=== PATIENT | male | born 1970 | race Hispanic/Latino ===

== ENCOUNTER 2019-03-28 14:02 | Emergency (ER) | payer OTHER ==
[2019-03-28 14:39] LABS: CREATININE 1.1 mg/dL (0.5-1.5)
[2019-03-28 14:44] LABS: BILIRUBIN,TOTAL 0.3 mg/dL (0.2-1.0); TOTAL PROTEIN, SERUM 6.9 g/dL (6.0-8.3)
[2019-03-28] MEDS ORDERED: ACETAMINOPHEN EXTRA STRENGTH 500 MG TABLET ONE (15:08)
[2019-03-28 15:09] LABS: BASOPHILS % (AUTO) 0.8 % (0.0-5.0); EOSINOPHILS % (AUTO) 1.3 % (0.0-8.0); HEMATOCRIT 46.3 % (42-54); LYMPHOCYTES % (AUTO) 26.2 % (21.0-51.0); MEAN CORPUSCULAR HEMOGLOBIN 29.9 pg (27.0-33.0); MEAN CORPUSCULAR HGB CONC 35.2 g/dL (32.0-36.0); MONOCYTES % (AUTO) 6.7 % (3.0-13.0); PLATELET COUNT (AUTO) 263 K/uL (130-400); RED BLOOD CELL COUNT(AUTO) 5.45 MIL/uL (4.50-6.20); RED CELL DISTRIBUTION WIDTH 12.6 % (11.0-15.5); WHITE BLOOD COUNT (AUTO) 7.4 K/uL (4.8-10.8)
[2019-03-28 15:24] LABS: APPEARANCE,URINE Clear (CLEAR); BILIRUBIN,URINE Negative (NEGATIVE); COLOR,URINE Yellow (YELLOW); GLUCOSE, URINE (UA) Negative (NEGATIVE); KETONES,URINE Negative (NEGATIVE); LEUKOCYTE ESTERASE ,URINE Negative (NEGATIVE); NITRATE,URINE Negative (NEGATIVE); OCCULT BLOOD,URINE Negative (NEGATIVE); PH,URINE 6.5 (5.0-8.0); PROTEIN,URINE Negative (NEGATIVE); UROBILINOGEN,URINE 0.2 mg/dL (0.2-1.0)
[2019-03-28 15:32] LABS: AMPHET/METH SCREEN,URINE NEGATIVE (NEGATIVE); BARBITURATE SCREEN, URINE NEGATIVE (NEGATIVE); BENZODIAZEPINES SCREEN,URINE POSITIVE (NEGATIVE); CANNABINOID SCREEN,URINE NEGATIVE (NEGATIVE); COCAINE SCREEN,URINE POSITIVE (NEGATIVE); OPIATE SCREEN,URINE NEGATIVE (NEGATIVE); PHENCYCLIDINE SCREEN,URINE NEGATIVE (NEGATIVE)
[2019-03-28] MEDS ORDERED: IBUPROFEN 600 MG TABLET ONE (15:49)
== END 2019-03-28 15:57 | disposition home or self-care (01) ==
LOC: EDH 14:02
DX: S00.83XA Contusion of other part of head, initial encounter (principal); G40.909 Epilepsy, unspecified, not intractable, without status epilepticus; F14.10 Cocaine abuse, uncomplicated; I10 Essential (primary) hypertension; F41.9 Anxiety disorder, unspecified; I25.2 Old myocardial infarction; Z72.0 Tobacco use; X58.XXXA Exposure to other specified factors, initial encounter; Y93.89 Activity, other specified; Y92.89 Other specified places as the place of occurrence of the external cause; Y99.8 Other external cause status
CPT/HCPCS: 36415; 80053; 80305; 81003; 83735; 85025; 93005

== ENCOUNTER 2020-08-15 19:15 | Inpatient (IN) | payer OTHER ==
[2020-08-15] MEDS ORDERED: PANTOPRAZOLE 40 MG/VIAL ONE (19:40)
[2020-08-15] MEDS ORDERED: METOCLOPRAMIDE 10 MG/2 ML VIAL ONE (19:40)
[2020-08-15] MEDS ORDERED: ONDANSETRON HCL 4 MG/2 ML VIAL ONE (19:40)
[2020-08-15] MEDS ORDERED: FAMOTIDINE/PF 20 MG/2 ML VIAL IV ONE (19:41)
[2020-08-15 19:49] LABS: BASOPHILS % (AUTO) 0.9 % (0.0-5.0); EOSINOPHILS % (AUTO) 1.9 % (0.0-8.0); HEMATOCRIT 41.4 % (42-54); LYMPHOCYTES % (AUTO) 20.6 % (21.0-51.0); MEAN CORPUSCULAR HEMOGLOBIN 28.8 pg (27.0-33.0); MEAN CORPUSCULAR HGB CONC 35.7 g/dL (32.0-36.0); MEAN CORPUSCULAR VOLUME 80.7 fL (79-99); MONOCYTES % (AUTO) 12.8 % (3.0-13.0); NEUTROPHILS % (AUTO) 63.5 % (40.0-77.0); PLATELET COUNT (AUTO) 260 K/uL (130-400); RED BLOOD CELL COUNT(AUTO) 5.13 MIL/uL (4.50-6.20); WHITE BLOOD COUNT (AUTO) 5.7 K/uL (4.8-10.8)
[2020-08-15 19:58] LABS: CREATININE 1.5 mg/dL (0.5-1.5); POTASSIUM 3.8 mmol/L (3.5-5.1)
[2020-08-15 20:02] LABS: INR 1.02 (0.85-1.15); PROTHROMBIN TIME 11.1 SEC (9.6-11.6)
[2020-08-15 20:03] LABS: PARTIAL THROMBOPLASTIN TIME 36.2 SEC (26.3-35.5)
[2020-08-15 20:08] LABS: ALBUMIN 4.2 g/dL (3.5-5.0); BILIRUBIN,TOTAL 0.5 mg/dL (0.2-1.0); TOTAL PROTEIN, SERUM 7.7 g/dL (6.0-8.3)
[2020-08-15] MEDS ORDERED: DiphenhydrAMINE HCL 50 MG/ML VIAL ONE (20:13)
[2020-08-15] MEDS ORDERED: MORPHINE SULFATE 4 MG/1ML SYG ONE (20:34)
[2020-08-15] MEDS ORDERED: IOHEXOL-350 75 ML VIAL IV ONE (20:41)
[2020-08-15] MEDS ORDERED: HYDROMORPHONE 1 MG/1 ML AMP ONE ×2 (21:17→22:38)
[2020-08-15 22:49] LABS: APPEARANCE,URINE Clear (CLEAR); BILIRUBIN,URINE Negative (NEGATIVE); COLOR,URINE Yellow (YELLOW); GLUCOSE, URINE (UA) Negative (NEGATIVE); KETONES,URINE Negative (NEGATIVE); LEUKOCYTE ESTERASE ,URINE Negative (NEGATIVE); NITRATE,URINE Negative (NEGATIVE); OCCULT BLOOD,URINE Negative (NEGATIVE); PH,URINE 7.5 (5.0-8.0); PROTEIN,URINE Negative (NEGATIVE); UROBILINOGEN,URINE 0.2 mg/dL (0.2-1.0)
[2020-08-15] MEDS ORDERED: LUBIPROSTONE 24 MCG CAP PO SCH (23:00)
[2020-08-15] MEDS ORDERED: BISACODYL 10 MG SUPP.RECT RC ONE (23:00)
[2020-08-15 23:22] LABS: AMPHET/METH SCREEN,URINE NEGATIVE (NEGATIVE); BARBITURATE SCREEN, URINE NEGATIVE (NEGATIVE); BENZODIAZEPINES SCREEN,URINE NEGATIVE (NEGATIVE); CANNABINOID SCREEN,URINE NEGATIVE (NEGATIVE); COCAINE SCREEN,URINE POSITIVE (NEGATIVE); OPIATE SCREEN,URINE POSITIVE (NEGATIVE); PHENCYCLIDINE SCREEN,URINE NEGATIVE (NEGATIVE)
[2020-08-15 23:22] LABS: HEMOGLOBIN A1C 6.6 % (4.0-6.0)
[2020-08-15] MEDS ORDERED: MORPHINE SULFATE 4 MG/1ML SYG IV PRN (23:30)
[2020-08-15] MEDS ORDERED: SODIUM CHLORIDE 0.9% 1000ML 1,000 ML IV SCH (23:30)
[2020-08-15] MEDS ORDERED: MORPHINE SULFATE 2 MG/ML 1ML SYG IV PRN (23:30)
[2020-08-15] MEDS ORDERED: TEMAZEPAM 15 MG CAPSULE PO ONE (23:30)
[2020-08-15] MEDS ORDERED: ACETAMINOPHEN 325 MG TAB PO PRN ×2 (23:30)
[2020-08-15] MEDS ORDERED: ONDANSETRON HCL 4 MG/2 ML VIAL IV PRN (23:30)
[2020-08-16 00:09] LABS: CREATINE KINASE, TOTAL 82 U/L (21-232); MYOGLOBIN 35 ng/mL (10-92); PHOSPHORUS 3.5 mg/dL (2.5-4.9); TROPONIN I < 0.04 ng/mL (0.00-0.06)
[2020-08-16] MEDS ORDERED: TEMAZEPAM 15 MG CAPSULE ONE (00:30)
[2020-08-16] MEDS ORDERED: SODIUM CHLORIDE 0.9% 1000ML 1,000 ML IV ONE (00:31)
[2020-08-16] MEDS ORDERED: DILTIAZEM HCL 60 MG TABLET ONE (00:42)
[2020-08-16] MEDS ORDERED: DILTIAZEM HCL 60 MG TABLET PO SCH (06:00)
[2020-08-16 06:13] LABS: BASOPHILS % (AUTO) 0.6 % (0.0-5.0); EOSINOPHILS % (AUTO) 2.1 % (0.0-8.0); HEMATOCRIT 40.4 % (42-54); MEAN CORPUSCULAR HEMOGLOBIN 28.8 pg (27.0-33.0); MEAN CORPUSCULAR HGB CONC 35.4 g/dL (32.0-36.0); MEAN CORPUSCULAR VOLUME 81.5 fL (79-99); MONOCYTES % (AUTO) 14.5 % (3.0-13.0); NEUTROPHILS % (AUTO) 57.2 % (40.0-77.0); PLATELET COUNT (AUTO) 244 K/uL (130-400); RED BLOOD CELL COUNT(AUTO) 4.96 MIL/uL (4.50-6.20); RED CELL DISTRIBUTION WIDTH 12.3 % (11.0-15.5); WHITE BLOOD COUNT (AUTO) 4.8 K/uL (4.8-10.8)
[2020-08-16] MEDS ORDERED: MORPHINE SULFATE 2 MG/ML 1ML SYG ONE (06:20)
[2020-08-16 06:37] LABS: ALANINE AMINOTRANSFERASE 48 U/L (12-78); ALBUMIN 4.2 g/dL (3.5-5.0); ASPARTATE AMINOTRANSFERASE 21 U/L (10-37); BILIRUBIN,TOTAL 0.6 mg/dL (0.2-1.0); CARBON DIOXIDE 24 mmol/L (21-32); CHLORIDE 99 mmol/L (101-111); CHOLESTEROL 141 mg/dL (<200); CREATINE KINASE, TOTAL 96 U/L (21-232); CREATININE 1.1 mg/dL (0.5-1.5); GLOMERULAR FILTR. RATE CALC 76 mL/min (>60); GLUCOSE,RANDOM 128 mg/dL (70-105); HDL CHOLESTEROL 36 mg/dL (29-71); LDL DIRECT 78 mg/dL (0-99); LIPASE 1101 U/L (114-286); MYOGLOBIN 36 ng/mL (10-92); POTASSIUM 3.8 mmol/L (3.5-5.1); SODIUM SERUM 134 mmol/L (136-145); TOTAL PROTEIN, SERUM 7.7 g/dL (6.0-8.3); TRIGLYCERIDES 167 mg/dL (30-200); TROPONIN I < 0.04 ng/mL (0.00-0.06); UREA NITROGEN, BLOOD 15 mg/dL (7-18)
[2020-08-16] MEDS ORDERED: FAMOTIDINE/PF 20 MG/2 ML VIAL IV ONE (08:08)
[2020-08-16] MEDS ORDERED: ENOXAPARIN SODIUM 40 MG/0.4 ML SYRINGE SQ ONE (08:08)
[2020-08-16] MEDS ORDERED: PSYLLIUM SEED 1 EACH PACKET PO SCH (09:00)
[2020-08-16] MEDS ORDERED: FAMOTIDINE/PF 20 MG/2 ML VIAL IV SCH (09:00)
[2020-08-16] MEDS ORDERED: ENOXAPARIN SODIUM 40 MG/0.4 ML SYRINGE SQ SCH (09:00)
== END 2020-08-16 08:30 | disposition left against medical advice (07) | DRG 917 ==
LOC: EDH 19:15 → EDHIP 19:16 → UNDOADMIN 23:22
PROVIDERS: ADMIT Internal Medicine; ATTEND Internal Medicine
DX: T40.5X1A Poisoning by cocaine, accidental (unintentional), initial encounter (principal); K55.059 Acute (reversible) ischemia of intestine, part and extent unspecified; K85.90 Acute pancreatitis without necrosis or infection, unspecified; E87.1 Hypo-osmolality and hyponatremia; G40.909 Epilepsy, unspecified, not intractable, without status epilepticus; M10.9 Gout, unspecified; I10 Essential (primary) hypertension; F32.9 Major depressive disorder, single episode, unspecified; K76.0 Fatty (change of) liver, not elsewhere classified; R16.1 Splenomegaly, not elsewhere classified; R73.9 Hyperglycemia, unspecified; F39 Unspecified mood [affective] disorder; F14.10 Cocaine abuse, uncomplicated; F12.10 Cannabis abuse, uncomplicated; K57.90 Diverticulosis of intestine, part unspecified, without perforation or abscess without bleeding; K59.00 Constipation, unspecified; Z53.29 Procedure and treatment not carried out because of patient's decision for other reasons; Z79.899 Other long term (current) drug therapy; Z56.0 Unemployment, unspecified; Z91.19 Patient's noncompliance with other medical treatment and regimen; I25.2 Old myocardial infarction; Z91.14 Patient's other noncompliance with medication regimen; Y92.89 Other specified places as the place of occurrence of the external cause
CPT/HCPCS: 36415; 74177; 76705; 80053; 80061; 80305; 81003; 82550; 83036; 83605; 83690; 83735; 83874; 84100; 84145; 84484; 85025; 85610; 85730; 86140; 93005; C9113; G0378; J1170; J1200; J1650; J2270; J2405; J2765; J3490; J7030; Q9967

== ENCOUNTER 2020-08-17 05:41 | Inpatient (IN) | payer OTHER ==
[2020-08-17] MEDS ORDERED: LABETALOL HCL 5 MG/ML 20ML VIAL IV ONE (06:21)
[2020-08-17] MEDS ORDERED: MAG HYDROX/AL HYDROX/SIMETH ES 30 ML SUSP UDCUP ONE (06:33)
[2020-08-17] MEDS ORDERED: LIDOCAINE HCL 2% VISCOUS 15 ML UDCUP ONE (06:33)
[2020-08-17 06:34] LABS: EOSINOPHILS % (AUTO) 3.3 % (0.0-8.0); HEMATOCRIT 44.4 % (42-54); MEAN CORPUSCULAR HEMOGLOBIN 28.6 pg (27.0-33.0); MEAN CORPUSCULAR HGB CONC 35.1 g/dL (32.0-36.0); MEAN CORPUSCULAR VOLUME 81.5 fL (79-99); MONOCYTES % (AUTO) 13.5 % (3.0-13.0); NEUTROPHILS % (AUTO) 63.5 % (40.0-77.0); PLATELET COUNT (AUTO) 303 K/uL (130-400); RED BLOOD CELL COUNT(AUTO) 5.45 MIL/uL (4.50-6.20); RED CELL DISTRIBUTION WIDTH 12.5 % (11.0-15.5); WHITE BLOOD COUNT (AUTO) 6.1 K/uL (4.8-10.8)
[2020-08-17 06:43] LABS: ALBUMIN 4.2 g/dL (3.5-5.0); BILIRUBIN,TOTAL 0.7 mg/dL (0.2-1.0); CREATININE 1.1 mg/dL (0.5-1.5); POTASSIUM 4.3 mmol/L (3.5-5.1); TOTAL PROTEIN, SERUM 8.1 g/dL (6.0-8.3)
[2020-08-17] MEDS ORDERED: MORPHINE SULFATE 2 MG/ML 1ML SYG IVP PRN (08:15)
[2020-08-17] MEDS ORDERED: LACTATED RINGERS 1000ML 1,000 ML IV SCH (08:15)
[2020-08-17 08:38] LABS: AMPHET/METH SCREEN,URINE NEGATIVE (NEGATIVE); BARBITURATE SCREEN, URINE NEGATIVE (NEGATIVE); BENZODIAZEPINES SCREEN,URINE POSITIVE (NEGATIVE); CANNABINOID SCREEN,URINE NEGATIVE (NEGATIVE); COCAINE SCREEN,URINE POSITIVE (NEGATIVE); OPIATE SCREEN,URINE NEGATIVE (NEGATIVE); PHENCYCLIDINE SCREEN,URINE NEGATIVE (NEGATIVE)
[2020-08-17] MEDS ORDERED: SODIUM CHLORIDE 0.9% 1000ML 1,000 ML IV ONE (08:55)
[2020-08-17] MEDS ORDERED: MORPHINE SULFATE 2 MG/ML 1ML SYG ONE (08:56)
[2020-08-17] MEDS ORDERED: LACTATED RINGERS 1000ML 1,000 ML IV ONE (08:56)
== END 2020-08-17 12:22 | disposition home or self-care (01) | DRG 439 ==
LOC: EDH 05:41 → EDHIP 05:42
PROVIDERS: ADMIT Internal Medicine; ATTEND Internal Medicine
DX: K85.90 Acute pancreatitis without necrosis or infection, unspecified (principal); E87.1 Hypo-osmolality and hyponatremia; F14.10 Cocaine abuse, uncomplicated; Z91.19 Patient's noncompliance with other medical treatment and regimen; R73.9 Hyperglycemia, unspecified; G40.909 Epilepsy, unspecified, not intractable, without status epilepticus; F39 Unspecified mood [affective] disorder; I10 Essential (primary) hypertension; F31.9 Bipolar disorder, unspecified
CPT/HCPCS: 36415; 76705; 80053; 80305; 83605; 83690; 84484; 85025; 93005; G0378; J3490; J7030; J7120

== ENCOUNTER 2022-09-12 12:24 | Emergency (ER) | payer OTHER ==
[~2022-09-12] VITALS: Ht 175.3 cm; Wt 104.3 kg
[2022-09-12 13:18] LABS: BASOPHILS % (AUTO) 0.7 % (0.0-5.0); EOSINOPHILS % (AUTO) 2.7 % (0.0-8.0); HEMATOCRIT 49.4 % (42-54); LYMPHOCYTES % (AUTO) 30.9 % (21.0-51.0); MEAN CORPUSCULAR HEMOGLOBIN 29.2 pg (27.0-33.0); MEAN CORPUSCULAR HGB CONC 34.8 g/dL (32.0-36.0); MEAN CORPUSCULAR VOLUME 83.9 fL (79-99); MONOCYTES % (AUTO) 5.9 % (3.0-13.0); NEUTROPHILS % (AUTO) 59.3 % (40.0-77.0); PLATELET COUNT (AUTO) 207 K/uL (130-400); RED BLOOD CELL COUNT(AUTO) 5.89 MIL/uL (4.50-6.20); RED CELL DISTRIBUTION WIDTH 13.1 % (11.0-15.5); WHITE BLOOD COUNT (AUTO) 5.5 K/uL (4.8-10.8)
[2022-09-12 13:29] LABS: CREATININE 1.2 mg/dL (0.5-1.5); POTASSIUM 3.9 mmol/L (3.5-5.1)
[2022-09-12 13:35] LABS: ALBUMIN 4.3 g/dL (3.5-5.0); TOTAL PROTEIN, SERUM 7.4 g/dL (6.0-8.3)
[2022-09-12 13:42] LABS: AMPHET/METH SCREEN,URINE NEGATIVE (NEGATIVE); BARBITURATE SCREEN, URINE NEGATIVE (NEGATIVE); BENZODIAZEPINES SCREEN,URINE POSITIVE (NEGATIVE); CANNABINOID SCREEN,URINE NEGATIVE (NEGATIVE); COCAINE SCREEN,URINE NEGATIVE (NEGATIVE); OPIATE SCREEN,URINE NEGATIVE (NEGATIVE); PHENCYCLIDINE SCREEN,URINE NEGATIVE (NEGATIVE)
[2022-09-12 13:46] LABS: APPEARANCE,URINE CLEAR (CLEAR); BILIRUBIN,URINE NEGATIVE (NEGATIVE); COLOR,URINE LIGHT-YELLOW (YELLOW); GLUCOSE, URINE (UA) >=1000 mg/dL (NEGATIVE); KETONES,URINE 5 mg/dL (NEGATIVE); LEUKOCYTE ESTERASE ,URINE NEGATIVE Leu/uL (NEGATIVE); NITRATE,URINE NEGATIVE (NEGATIVE); OCCULT BLOOD,URINE NEGATIVE (NEGATIVE); PROTEIN,URINE NEGATIVE (NEGATIVE); RBC,URINE 0-1 /HPF (0-1); UROBILINOGEN,URINE 0.2 mg/dL (0.2-1.0); WBC,URINE 0-1 /HPF (0-1)
[2022-09-12 14:32] VITALS: BP 106/72
== END 2022-09-12 14:59 | disposition home or self-care (01) ==
LOC: EDH 12:24
DX: H53.8 Other visual disturbances (principal); I10 Essential (primary) hypertension; E11.9 Type 2 diabetes mellitus without complications; H53.2 Diplopia; F41.9 Anxiety disorder, unspecified
CPT/HCPCS: 36415; 80053; 80305; 81001; 84484; 85025; 93005

== ENCOUNTER 2023-01-08 04:04 | Emergency (ER) | payer OTHER ==
[~2023-01-08] VITALS: Ht 175.3 cm; Wt 109.8 kg
[2023-01-08 04:22] LABS: BASOPHILS # (AUTO) 0.05 K/uL (0.00-0.20); BASOPHILS % (AUTO) 0.6 % (0.0-5.0); EOSINOPHILS # (AUTO) 0.38 K/uL (0.00-0.70); EOSINOPHILS % (AUTO) 4.3 % (0.0-8.0); HEMATOCRIT 45.4 % (42-54); IMMATURE GRANULOCYTE ABSOLUTE 0.04 K/uL (0-1); LYMPHOCYTES # (AUTO) 1.6 K/uL (1.0-4.8); LYMPHOCYTES % (AUTO) 17.8 % (21.0-51.0); MEAN CORPUSCULAR HEMOGLOBIN 28.9 pg (27.0-33.0); MEAN CORPUSCULAR HGB CONC 35.2 g/dL (32.0-36.0); MEAN CORPUSCULAR VOLUME 82.1 fL (79-99); MONOCYTES # (AUTO) 0.8 K/uL (0.1-1.0); MONOCYTES % (AUTO) 8.5 % (3.0-13.0); NEUTROPHILS # (AUTO) 6.1 K/uL (1.8-7.7); NEUTROPHILS % (AUTO) 68.3 % (40.0-77.0); PLATELET COUNT (AUTO) 243 K/uL (130-400); RED BLOOD CELL COUNT(AUTO) 5.53 MIL/uL (4.50-6.20); RED CELL DISTRIBUTION WIDTH 12.6 % (11.0-15.5); WHITE BLOOD COUNT (AUTO) 8.9 K/uL (4.8-10.8)
[2023-01-08 04:31] LABS: CREATININE 1.1 mg/dL (0.5-1.5); POTASSIUM 4.1 mmol/L (3.5-5.1)
[2023-01-08 04:39] LABS: ALBUMIN 3.7 g/dL (3.5-5.0); BILIRUBIN,TOTAL 0.3 mg/dL (0.2-1.0); TOTAL PROTEIN, SERUM 7.5 g/dL (6.0-8.3)
[2023-01-08] MEDS ORDERED: NITROGLYCERIN 0.4 MG SL TAB SL PRN (05:00)
[2023-01-08] MEDS ORDERED: MORPHINE 4 MG SYG IVP ONE (06:30)
[2023-01-08] MEDS ORDERED: IOHEXOL 350 MG/ML 100ML INFUS..BTL IV ONE (06:37)
[2023-01-08 08:01] LABS: CRP QUANTITATIVE 41.4 mg/L (0.00-9.0)
[2023-01-08] MEDS ORDERED: AZITHROMYCIN 250 MG TABLET PO ONE (08:30)
[2023-01-08] MEDS ORDERED: CEFTRIAXONE 1G VIAL IVPB ONE (08:30)
[2023-01-08] MEDS ORDERED: KETOROLAC 30MG VIAL (30MG/ML) IVP ONE (08:30)
[2023-01-08] MEDS ORDERED: 0.9%NACL 1000ML 1,000 ML IV SCH (08:30)
[2023-01-08 09:07] LABS: MAGNESIUM 1.8 mg/dL (1.80-2.40)
[2023-01-08 09:33] LABS: ABG BASE EXCESS -2.9 mmol/L (-2.0-3.0); ABG HCO3 21.6 mmol/L (21.0-28.0); ABG OXYGEN SATURATION 95.7 % (95.0-99.0); ABG PCO2 37 mmHg (35-48); ABG PH 7.384 (7.35-7.450); PO2, ARTERIAL BG 79.8 mmHg (83.0-108.0); VENT MODE, BG RA (ROOM AIR)
[2023-01-08] MEDS ORDERED: AMOX-426 PO (09:57)
[2023-01-08] MEDS ORDERED: KETO10 PO (09:57)
[2023-01-08 10:21] VITALS: BP 138/81; PULSE 91; RESP 18; O2SAT 96
== END 2023-01-08 10:22 | disposition home or self-care (01) ==
LOC: EDH 04:04
DX: R07.89 Other chest pain (principal); I10 Essential (primary) hypertension; F41.9 Anxiety disorder, unspecified; F32.A Depression, unspecified; R56.9 Unspecified convulsions
CPT/HCPCS: 99285; 96365; 71275; 71045; 96375; 82550; 83735; 84484 ×2; 80053; 82803; 83690; 85025; 85378; 87040 ×2; 83605; 86140; 36415; 93005 ×3; 36600; J0696; J2270; J1885; Q9967

== ENCOUNTER 2023-05-14 06:17 | Inpatient (IN) | payer OTHER ==
[~2023-05-14] VITALS: Ht 175.3 cm; Wt 108.4 kg
[~2023-05-14 06:17] MED LIST: AMOX-426 PO; KETO10 PO
[2023-05-14] MEDS ORDERED: SOLU-MEDROL 125MG VIAL ONE (06:25)
[2023-05-14] MEDS ORDERED: NITROGLYCERIN 0.4 MG SL TAB SL ONE (06:25)
[2023-05-14] MEDS ORDERED: IPRATROPIUM/ALBUTEROL SULFATE 3 ML SOLUTION IH ONE ×3 (06:28→07:00)
[2023-05-14] MEDS ORDERED: NITROGLYCERIN 0.4 MG SL TAB SL PRN (06:30)
[2023-05-14] MEDS ORDERED: SOLU-MEDROL 125MG VIAL IVP ONE (06:30)
[2023-05-14 06:35] VITALS: PULSE 125; RESP 21
[2023-05-14] MEDS ORDERED: NITROGLYCERIN 50MG/D5W 250ML 1 BOT ONE (06:35)
[2023-05-14] MEDS ORDERED: ACETAMINOPHEN 500 MG TABLET ONE (06:39)
[2023-05-14 06:43] LABS: BASOPHILS # (AUTO) 0.04 K/uL (0.00-0.20); BASOPHILS % (AUTO) 0.6 % (0.0-5.0); EOSINOPHILS # (AUTO) 0.04 K/uL (0.00-0.70); EOSINOPHILS % (AUTO) 0.6 % (0.0-8.0); HEMATOCRIT 47.6 % (42-54); IMMATURE GRANULOCYTE ABSOLUTE 0.05 K/uL (0-1); LYMPHOCYTES # (AUTO) 0.8 K/uL (1.0-4.8); LYMPHOCYTES % (AUTO) 11.9 % (21.0-51.0); MEAN CORPUSCULAR HEMOGLOBIN 28.5 pg (27.0-33.0); MEAN CORPUSCULAR HGB CONC 34.9 g/dL (32.0-36.0); MEAN CORPUSCULAR VOLUME 81.8 fL (79-99); MONOCYTES # (AUTO) 0.6 K/uL (0.1-1.0); MONOCYTES % (AUTO) 8.6 % (3.0-13.0); NEUTROPHILS # (AUTO) 5.3 K/uL (1.8-7.7); NEUTROPHILS % (AUTO) 77.6 % (40.0-77.0); PLATELET COUNT (AUTO) 229 K/uL (130-400); RED BLOOD CELL COUNT(AUTO) 5.82 MIL/uL (4.50-6.20); RED CELL DISTRIBUTION WIDTH 12.7 % (11.0-15.5); WHITE BLOOD COUNT (AUTO) 6.9 K/uL (4.8-10.8)
[2023-05-14 06:50] VITALS: PULSE 118; RESP 21
[2023-05-14 06:51] LABS: ALBUMIN 3.9 g/dL (3.5-5.0); BILIRUBIN,TOTAL 0.6 mg/dL (0.2-1.0); MAGNESIUM 1.6 mg/dL (1.80-2.40); POTASSIUM 3.8 mmol/L (3.5-5.1); TOTAL PROTEIN, SERUM 7.8 g/dL (6.0-8.3)
[2023-05-14 06:57] LABS: SARS-CoV-2, RNA, NAAT NEGATIVE SARS CoV-2 (NEGATIVE)
[2023-05-14] MEDS ORDERED: HEPARIN 25,000 UNITS/250ML D5W 250 ML IV PRN (07:00)
[2023-05-14] MEDS ORDERED: NITROGLYCERIN 50MG/D5W 250ML 250 BOT IV SCH (07:00)
[2023-05-14] MEDS ORDERED: ACETAMINOPHEN 500 MG TABLET PO ONE (07:00)
[2023-05-14] MEDS ORDERED: NITROGLYCERIN 50MG/D5W 250ML 1 BOT IV PRN (07:00)
[2023-05-14] MEDS ORDERED: KETOROLAC 30MG VIAL (30MG/ML) IV ONE (07:00)
[2023-05-14] MEDS ORDERED: ONDANSETRON 4MG INJ IVP ONE ×2 (07:00)
[2023-05-14] MEDS ORDERED: FUROSEMIDE 40MG VIAL IV ONE (07:00)
[2023-05-14 07:03] LABS: INFLUENZA TYPE A Negative For Type A (NEGATIVE); INFLUENZA TYPE B Negative For Type B (NEGATIVE)
[2023-05-14 07:05] VITALS: PULSE 115; RESP 19; O2SAT 98
[2023-05-14] MEDS ORDERED: ASPIRIN 81MG CHEW TAB ONE (07:09)
[2023-05-14] MEDS ORDERED: LORAZEPAM 2 MG/ML 1 ML VIAL ONE (07:20)
[2023-05-14 07:21] LABS: CHOLESTEROL 155 mg/dL (<200); HDL CHOLESTEROL 31 mg/dL (29-71); LDL DIRECT 84 mg/dL (0-99); TRIGLYCERIDES 264 mg/dL (30-200)
[2023-05-14 07:27] LABS: B-TYPE NATRIURETIC PEPTIDE 7 pg/mL (0-100)
[2023-05-14 07:28] LABS: INR < 0.93 (0.85-1.15); PROTHROMBIN TIME 10.3 SEC (9.6-11.6)
[2023-05-14] MEDS ORDERED: LORAZEPAM 2 MG/ML 1 ML VIAL IVP ONE (07:30)
[2023-05-14] MEDS ORDERED: ASPIRIN 81MG CHEW TAB PO ONE (07:30)
[2023-05-14] MEDS ORDERED: QUET300T19 PO (07:52)
[2023-05-14] MEDS ORDERED: DIVA-76 PO (07:52)
[2023-05-14] MEDS ORDERED: ALPR2TAB7 PO (07:53)
[2023-05-14] MEDS ORDERED: ASPIRIN 325MG TAB PO ONE (08:00)
[2023-05-14] MEDS ORDERED: ACETAMINOPHEN 650 MG SUPPOSITORY RC PRN (08:00)
[2023-05-14] MEDS ORDERED: ACETAMINOPHEN 325 MG TAB PO PRN (08:00)
[2023-05-14] MEDS ORDERED: LACTULOSE 20 GM/30 ML UDCUP PO PRN (08:00)
[2023-05-14] MEDS ORDERED: CLONIDINE HCL 0.1 MG TABLET PO PRN (08:00)
[2023-05-14] MEDS ORDERED: HYDRALAZINE 20MG/ML VIAL IV PRN (08:00)
[2023-05-14] MEDS ORDERED: ONDANSETRON 4MG INJ IVP PRN (08:00)
[2023-05-14] MEDS ORDERED: MAGNESIUM 2GM PREMIX 50ML 50 ML IV SCH (08:00)
[2023-05-14] MEDS ORDERED: LABETALOL 20MG SYG IV PRN (08:00)
[2023-05-14] MEDS ORDERED: TEMAZEPAM 15 MG CAPSULE PO PRN (08:00)
[2023-05-14] MEDS ORDERED: LORAZEPAM 1 MG TABLET PO PRN (08:00)
[2023-05-14] MEDS ORDERED: FUROSEMIDE 40MG VIAL IV SCH (08:00)
[2023-05-14] MEDS ORDERED: IOHEXOL 350 MG/ML 100ML INFUS..BTL IV ONE (08:21)
[2023-05-14 08:33] LABS: AMPHET/METH SCREEN,URINE NEGATIVE (NEGATIVE); BARBITURATE SCREEN, URINE NEGATIVE (NEGATIVE); BENZODIAZEPINES SCREEN,URINE POSITIVE (NEGATIVE); CANNABINOID SCREEN,URINE NEGATIVE (NEGATIVE); COCAINE SCREEN,URINE NEGATIVE (NEGATIVE); OPIATE SCREEN,URINE NEGATIVE (NEGATIVE); PHENCYCLIDINE SCREEN,URINE NEGATIVE (NEGATIVE)
[2023-05-14] MEDS ORDERED: CEFTRIAXONE 1G VIAL IVPB SCH (09:00)
[2023-05-14] MEDS ORDERED: AZITHROMYCIN 500MG+NS 250ML IV SCH (09:00)
[2023-05-14] MEDS ORDERED: ENOXAPARIN SODIUM 40 MG/0.4 ML SYRINGE SQ SCH (09:00)
[2023-05-14] MEDS ORDERED: FOLIC ACID 1 MG TABLET PO SCH (09:00)
[2023-05-14] MEDS ORDERED: PANTOPRAZOLE 40 MG TAB DR PO SCH (09:00)
[2023-05-14] MEDS ORDERED: MULTIVITS,STRESS FORMULA/ZINC 1 TABLET PO SCH (09:00)
[2023-05-14] MEDS ORDERED: THIAMINE HCL 100 MG TABLET PO SCH (09:00)
[2023-05-14] MEDS ORDERED: ASCORBIC ACID 500 MG TAB PO SCH (09:00)
[2023-05-14] MEDS ORDERED: DIVALPROEX SODIUM 250 MG TABLET.DR PO SCH (09:00)
[2023-05-14] MEDS ORDERED: LISINOPRIL 10 MG TABLET PO SCH (09:00)
[2023-05-14 09:53] VITALS: PULSE 96; RESP 20; O2SAT 96
[2023-05-14 10:29] VITALS: BP 113/92; PULSE 106; RESP 20; O2SAT 96
[2023-05-14] MEDS ORDERED: INSULIN HUMULIN R 100 UNIT/ML 3ML SQ SCH (11:30)
[2023-05-14] MEDS ORDERED: NON-FORMULARY MEDICATION 1 EACH (Alprazolam 2 MG) PO SCH (21:00)
[2023-05-14] MEDS ORDERED: QUETIAPINE FUMARATE 300 MG PO SCH (21:00)
[2023-05-15] MEDS ORDERED: ASPIRIN 81MG CHEW TAB PO SCH (09:00)
== END 2023-05-14 10:27 | disposition left against medical advice (07) | DRG 304 ==
LOC: EDH 06:17 → OBSVTOIN 06:18 → UNDOADMOB 06:18 → EDHIP 06:18 → UNDOADMOB 07:43 → EDHIP 07:43 → INTOOBSV 07:43 → OBSVTOIN 07:43 → UNDODISIN 10:27 → EDH 10:33 → EDHIP 10:33
PROVIDERS: ADMIT Internal Medicine Critical Care Medicine; ATTEND Internal Medicine Critical Care Medicine
DX: I16.1 Hypertensive emergency (principal); J81.0 Acute pulmonary edema; Z20.822 Contact with and (suspected) exposure to COVID-19; E11.9 Type 2 diabetes mellitus without complications; E66.9 Obesity, unspecified; F41.9 Anxiety disorder, unspecified; I10 Essential (primary) hypertension; Z53.29 Procedure and treatment not carried out because of patient's decision for other reasons; F19.10 Other psychoactive substance abuse, uncomplicated; R91.8 Other nonspecific abnormal finding of lung field; I25.2 Old myocardial infarction; Z82.49 Family history of ischemic heart disease and other diseases of the circulatory system; Z83.3 Family history of diabetes mellitus; Z68.35 Body mass index [BMI] 35.0-35.9, adult
CPT/HCPCS: 36415; 71045; 71270; 80053; 80061; 80305; 83605; 83735; 83880; 84484; 85025; 85378; 85610; 85730; 87040; 87635; 87804; 87880; 93005; 94640; 94660; C9803; G0378; J1644; J1885; J1940; J2060; J2405; J2930; J3475; J3490; Q9967

== ENCOUNTER 2023-05-17 15:32 | Inpatient (IN) | payer OTHER ==
[~2023-05-17] VITALS: Ht 175.3 cm; Wt 79.4 kg
[~2023-05-17 15:32] MED LIST changes: +ALPR2TAB7 PO; +DIVA-76 PO; +ETOMIDATE 20MG VIAL IVP ONE; +QUET300T19 PO; +ROCURONIUM BROMIDE 10MG/1ML 5ML VL IV ONE
[2023-05-17 15:46] LABS: BASOPHILS # (AUTO) 0.02 K/uL (0.00-0.20); BASOPHILS % (AUTO) 0.3 % (0.0-5.0); EOSINOPHILS # (AUTO) 0.06 K/uL (0.00-0.70); EOSINOPHILS % (AUTO) 0.8 % (0.0-8.0); HEMATOCRIT 44.3 % (42-54); IMMATURE GRANULOCYTE ABSOLUTE 0.05 K/uL (0-1); LYMPHOCYTES # (AUTO) 0.9 K/uL (1.0-4.8); LYMPHOCYTES % (AUTO) 12.2 % (21.0-51.0); MEAN CORPUSCULAR HEMOGLOBIN 28.5 pg (27.0-33.0); MEAN CORPUSCULAR HGB CONC 34.5 g/dL (32.0-36.0); MEAN CORPUSCULAR VOLUME 82.6 fL (79-99); MONOCYTES # (AUTO) 0.6 K/uL (0.1-1.0); MONOCYTES % (AUTO) 7.6 % (3.0-13.0); NEUTROPHILS % (AUTO) 78.4 % (40.0-77.0); PLATELET COUNT (AUTO) 239 K/uL (130-400); RED BLOOD CELL COUNT(AUTO) 5.36 MIL/uL (4.50-6.20); RED CELL DISTRIBUTION WIDTH 12.7 % (11.0-15.5); WHITE BLOOD COUNT (AUTO) 7.6 K/uL (4.8-10.8)
[2023-05-17 15:50] VITALS: PULSE 129; RESP 39; O2SAT 96
[2023-05-17] MEDS ORDERED: IPRATROPIUM/ALBUTEROL SULFATE 3 ML SOLUTION IH ONE (16:00)
[2023-05-17 16:01] LABS: ABG BASE EXCESS 1.6 mmol/L (-2.0-3.0); ABG HCO3 26.5 mmol/L (21.0-28.0); ABG OXYGEN SATURATION 98.4 % (95.0-99.0); ABG PCO2 43 mmHg (35-48); ABG PH 7.411 (7.35-7.450); DEVICE COMMENT RR RN; HHb 1.6; VENT MODE, BG BIPAP 12,6 (ROOM AIR)
[2023-05-17] MEDS ORDERED: IPRATROPIUM 0.5 MG/2.5 ML INH IH ONE (16:05)
[2023-05-17 16:17] VITALS: PULSE 122; RESP 33
[2023-05-17 16:22] LABS: B-TYPE NATRIURETIC PEPTIDE 17 pg/mL (0-100)
[2023-05-17 16:27] LABS: SARS-CoV-2, RNA, NAAT NEGATIVE SARS CoV-2 (NEGATIVE)
[2023-05-17 16:33] LABS: INFLUENZA TYPE A Negative For Type A (NEGATIVE); INFLUENZA TYPE B Negative For Type B (NEGATIVE)
[2023-05-17 16:37] LABS: CREATININE 1.3 mg/dL (0.5-1.5); POTASSIUM 3.6 mmol/L (3.5-5.1)
[2023-05-17 16:42] LABS: ALBUMIN 3.3 g/dL (3.5-5.0); BILIRUBIN,TOTAL 0.5 mg/dL (0.2-1.0); MAGNESIUM 1.7 mg/dL (1.80-2.40); TOTAL PROTEIN, SERUM 8.6 g/dL (6.0-8.3)
[2023-05-17] MEDS ORDERED: GLUCAGON 1MG KIT 1 MG ML IM PRN (18:00)
[2023-05-17] MEDS ORDERED: HYDRALAZINE 20MG/ML VIAL IV PRN (18:00)
[2023-05-17] MEDS ORDERED: TEMAZEPAM 15 MG CAPSULE PO PRN (18:00)
[2023-05-17] MEDS ORDERED: ALBUTEROL 0.083% 2.5 MG/3 ML INH IH PRN (18:00)
[2023-05-17] MEDS ORDERED: ONDANSETRON 4MG INJ IVP PRN (18:00)
[2023-05-17] MEDS ORDERED: DEXTROSE 50%-WATER 50 ML DISP.SYRIN IV PRN (18:00)
[2023-05-17] MEDS ORDERED: SOLU-MEDROL 125MG VIAL IVP ONE (18:30)
[2023-05-17] MEDS: IPRATROPIUM/ALBUTEROL SULFATE 3 ML SOLUTION IH SCH ×2 (18:40→23:06)
[2023-05-17] MEDS: CEFTRIAXONE 1G VIAL IV SCH (18:40)
[2023-05-17] MEDS: AZITHROMYCIN 500MG+NS 250ML IV SCH (18:40)
[2023-05-17 18:46] VITALS: PULSE 111; RESP 19; O2SAT 99
[2023-05-17] MEDS ORDERED: SOLU-MEDROL 40MG VIAL IVP SCH (19:30)
[2023-05-17] MEDS ORDERED: IOHEXOL 350 MG/ML 100ML INFUS..BTL IV ONE (19:30)
[2023-05-17] MEDS: PANTOPRAZOLE 40 MG/VIAL IVP SCH (20:34)
[2023-05-17] MEDS: DOCUSATE SODIUM 100 MG CAP PO SCH (20:35)
[2023-05-17] MEDS: MAGNESIUM 2GM PREMIX 50ML 50 ML IV PRN (20:35)
[2023-05-17] MEDS: INSULIN HUMULIN R 100 UNIT/ML 3ML SQ SCH (21:01)
[2023-05-17 21:03] LABS: APPEARANCE,URINE CLEAR (CLEAR); BILIRUBIN,URINE NEGATIVE (NEGATIVE); COLOR,URINE DARK-YELLOW (YELLOW); GLUCOSE, URINE (UA) >=1000 mg/dL (NEGATIVE); KETONES,URINE 20 mg/dL (NEGATIVE); LEUKOCYTE ESTERASE ,URINE NEGATIVE Leu/uL (NEGATIVE); NITRATE,URINE NEGATIVE (NEGATIVE); OCCULT BLOOD,URINE NEGATIVE (NEGATIVE); PROTEIN,URINE 70 mg/dL (NEGATIVE); UROBILINOGEN,URINE 0.2 mg/dL (0.2-1.0)
[2023-05-17 21:07] LABS: AMPHET/METH SCREEN,URINE NEGATIVE (NEGATIVE); BARBITURATE SCREEN, URINE NEGATIVE (NEGATIVE); BENZODIAZEPINES SCREEN,URINE POSITIVE (NEGATIVE); CANNABINOID SCREEN,URINE NEGATIVE (NEGATIVE); COCAINE SCREEN,URINE POSITIVE (NEGATIVE); OPIATE SCREEN,URINE NEGATIVE (NEGATIVE); PHENCYCLIDINE SCREEN,URINE NEGATIVE (NEGATIVE)
[2023-05-17 21:10] LABS: ADD UA MICROSCOPIC YES
[2023-05-17 21:11] LABS: BACTERIA,URINE RARE /HPF (None Seen); MUCUS,URINE RARE LPF (None Seen); RBC,URINE 0-1 /HPF (0-1); SQUAMOUS EPITHELIAL CELL,UR FEW /HPF (0-2)
[2023-05-17 22:00] VITALS: BP 151/98; PULSE 98; RESP 20; O2SAT 96
[2023-05-17] MEDS: ENOXAPARIN SODIUM 40 MG/0.4 ML SYRINGE SQ SCH (22:21)
[2023-05-17 23:09] VITALS: PULSE 102; RESP 22
[2023-05-17] MEDS: KCL 20 MEQ ERTAB PO PRN (23:11)
[2023-05-18] VITALS (48 sets, daily range): BP systolic 84–165; BP diastolic 48–111; PULSE 81–112; RESP 9–34; O2SAT 92–96
[2023-05-18] MEDS ORDERED: DiphenhydrAMINE HCL 50 MG/ML VIAL IV ONE (00:30)
[2023-05-18] MEDS ORDERED: FUROSEMIDE 40MG VIAL IV ONE ×2 (00:30→12:00)
[2023-05-18] MEDS: IPRATROPIUM/ALBUTEROL SULFATE 3 ML SOLUTION IH SCH ×3 (02:18→10:20)
[2023-05-18] MEDS ORDERED: IPRATROPIUM/ALBUTEROL SULFATE 3 ML SOLUTION IH SCH (04:00)
[2023-05-18 05:55] LABS: BASOPHILS # (AUTO) 0.02 K/uL (0.00-0.20); BASOPHILS % (AUTO) 0.2 % (0.0-5.0); HEMATOCRIT 43.9 % (42-54); IMMATURE GRANULOCYTE ABSOLUTE 0.04 K/uL (0-1); LYMPHOCYTES # (AUTO) 0.5 K/uL (1.0-4.8); LYMPHOCYTES % (AUTO) 6.3 % (21.0-51.0); MEAN CORPUSCULAR HEMOGLOBIN 28.4 pg (27.0-33.0); MEAN CORPUSCULAR HGB CONC 33.9 g/dL (32.0-36.0); MEAN CORPUSCULAR VOLUME 83.6 fL (79-99); MONOCYTES # (AUTO) 0.1 K/uL (0.1-1.0); MONOCYTES % (AUTO) 1.4 % (3.0-13.0); NEUTROPHILS # (AUTO) 7.8 K/uL (1.8-7.7); NEUTROPHILS % (AUTO) 91.6 % (40.0-77.0); PLATELET COUNT (AUTO) 252 K/uL (130-400); RED BLOOD CELL COUNT(AUTO) 5.25 MIL/uL (4.50-6.20); RED CELL DISTRIBUTION WIDTH 12.8 % (11.0-15.5); WHITE BLOOD COUNT (AUTO) 8.5 K/uL (4.8-10.8)
[2023-05-18] MEDS: INSULIN HUMULIN R 100 UNIT/ML 3ML SQ SCH ×3 (06:07→23:54)
[2023-05-18] MEDS: MORPHINE 2 MG SYG IVP PRN ×2 (06:10→17:25)
[2023-05-18 06:17] LABS: CREATININE 1.2 mg/dL (0.5-1.5); MAGNESIUM 2.1 mg/dL (1.80-2.40); PHOSPHORUS 4.2 mg/dL (2.5-4.9); POTASSIUM 4.4 mmol/L (3.5-5.1); THYROID STIMULATING HORMONE 0.67 uIU/mL (0.36-3.74)
[2023-05-18] MEDS: DOCUSATE SODIUM 100 MG CAP PO SCH ×2 (09:00→20:25)
[2023-05-18] MEDS: ENOXAPARIN SODIUM 40 MG/0.4 ML SYRINGE SQ SCH (09:00)
[2023-05-18] MEDS: AZITHROMYCIN 500MG+NS 250ML IV SCH (09:00)
[2023-05-18] MEDS ORDERED: SOLU-MEDROL 40MG VIAL IVP SCH (09:00)
[2023-05-18] MEDS: CEFTRIAXONE 1G VIAL IV SCH (09:00)
[2023-05-18] MEDS: DIVALPROEX SODIUM 250 MG TABLET.DR PO SCH ×2 (09:00→20:24)
[2023-05-18] MEDS: PANTOPRAZOLE 40 MG/VIAL IVP SCH (09:00)
[2023-05-18] MEDS ORDERED: PARO40TA72 PO (11:18)
[2023-05-18] MEDS ORDERED: METF-446 PO (11:18)
[2023-05-18] MEDS ORDERED: LOSA100T59 PO (11:18)
[2023-05-18] MEDS ORDERED: GLIP10TA9 PO (11:18)
[2023-05-18] MEDS ORDERED: GABA-529 PO (11:18)
[2023-05-18] MEDS ORDERED: HYDR25TA PO (11:18)
[2023-05-18] MEDS ORDERED: ALPRAZOLAM 1 MG TAB PO PRN (11:30)
[2023-05-18] MEDS ORDERED: LORAZEPAM 2 MG/ML 1 ML VIAL ONE (11:33)
[2023-05-18] MEDS ORDERED: FUROSEMIDE 40MG VIAL IV STA (11:34)
[2023-05-18] MEDS ORDERED: METOPROLOL TARTRATE 1 MG/ML 5ML VIAL IV PRN (11:40)
[2023-05-18] MEDS ORDERED: METOPROLOL TARTRATE 1 MG/ML 5ML VIAL IV ONE (11:41)
[2023-05-18] MEDS ORDERED: IPRATROPIUM 0.5 MG/2.5 ML INH IH ONE (11:42)
[2023-05-18 11:46] LABS: ABG BASE EXCESS 1.3 mmol/L (-2.0-3.0); ABG HCO3 27.5 mmol/L (21.0-28.0); ABG OXYGEN SATURATION 98.3 % (95.0-99.0); ABG PCO2 49 mmHg (35-48); ABG PH 7.368 (7.35-7.450); CARBON MONOXIDE 1.1; DEVICE COMMENT LRLISA; HHb 1.7; PO2, ARTERIAL BG 116.6 mmHg (83.0-108.0); VENT MODE, BG NRB (ROOM AIR)
[2023-05-18] MEDS ORDERED: NICARDIPINE IV SCH (12:00)
[2023-05-18] MEDS ORDERED: DEXTROSE 5% IV SCH (12:00)
[2023-05-18] MEDS ORDERED: WATER IV SCH (12:00)
[2023-05-18] MEDS: FUROSEMIDE 40MG VIAL IV SCH ×2 (12:00→23:55)
[2023-05-18] MEDS ORDERED: LORAZEPAM 2 MG/ML 1 ML VIAL IVP ONE (12:00)
[2023-05-18] MEDS ORDERED: MORPHINE 2 MG SYG IVP ONE (12:00)
[2023-05-18 12:01] LABS: BASOPHILS # (AUTO) 0.03 K/uL (0.00-0.20); BASOPHILS % (AUTO) 0.3 % (0.0-5.0); HEMATOCRIT 44.9 % (42-54); IMMATURE GRANULOCYTE ABSOLUTE 0.05 K/uL (0-1); LYMPHOCYTES # (AUTO) 0.7 K/uL (1.0-4.8); LYMPHOCYTES % (AUTO) 6.1 % (21.0-51.0); MEAN CORPUSCULAR HEMOGLOBIN 28.5 pg (27.0-33.0); MEAN CORPUSCULAR HGB CONC 34.3 g/dL (32.0-36.0); MONOCYTES # (AUTO) 0.5 K/uL (0.1-1.0); MONOCYTES % (AUTO) 4.9 % (3.0-13.0); NEUTROPHILS # (AUTO) 9.3 K/uL (1.8-7.7); NEUTROPHILS % (AUTO) 88.2 % (40.0-77.0); PLATELET COUNT (AUTO) 323 K/uL (130-400); RED BLOOD CELL COUNT(AUTO) 5.41 MIL/uL (4.50-6.20); RED CELL DISTRIBUTION WIDTH 12.9 % (11.0-15.5); WHITE BLOOD COUNT (AUTO) 10.6 K/uL (4.8-10.8)
[2023-05-18 12:21] LABS: CREATININE 1.3 mg/dL (0.5-1.5); POTASSIUM 4.2 mmol/L (3.5-5.1)
[2023-05-18 12:25] LABS: ALBUMIN 3.3 g/dL (3.5-5.0); BILIRUBIN,TOTAL 0.5 mg/dL (0.2-1.0); TOTAL PROTEIN, SERUM 8.3 g/dL (6.0-8.3)
[2023-05-18] MEDS ORDERED: CHLORDIAZEPOXIDE HCL 25 MG CAP PO SCH (12:54)
[2023-05-18] MEDS ORDERED: THIAMINE HCL 100 MG/ML 2ML VIAL IM ONE (13:30)
[2023-05-18] MEDS: ALPRAZOLAM 1 MG TAB PO SCH ×3 (13:39→23:55)
[2023-05-18] MEDS ORDERED: THIAMINE HCL 100 MG TABLET PO ONE (14:00)
[2023-05-18] MEDS ORDERED: THIAMINE HCL 100 MG/ML 2ML VIAL IVP ONE (14:45)
[2023-05-18] MEDS: INSULIN GLARGINE 100 UNITS/ML 10 ML VIAL SQ SCH ×2 (17:28→23:54)
[2023-05-18] MEDS: IPRATROPIUM 0.5 MG/2.5 ML INH IH SCH ×2 (18:00→23:22)
[2023-05-18] MEDS: QUETIAPINE FUMARATE 100 MG TAB PO SCH (20:23)
[2023-05-18] MEDS: SOLU-MEDROL 40MG VIAL IVP SCH (20:24)
[2023-05-18] MEDS: GABAPENTIN 300 MG CAPSULE PO SCH (20:25)
[2023-05-18] MEDS: CHLORDIAZEPOXIDE HCL 25 MG CAP PO PRN (20:29)
[2023-05-18] MEDS ORDERED: KETOROLAC 15MG/ML VIAL (15MG/ML) IV ONE (20:30)
[2023-05-18] MEDS ORDERED: LORAZEPAM 2 MG/ML 1 ML VIAL IVP PRN ×2 (20:30)
[2023-05-18] MEDS ORDERED: ONDANSETRON 4MG INJ IV PRN (20:30)
[2023-05-18] MEDS ORDERED: ALPRAZOLAM 1 MG TAB PO SCH (21:00)
[2023-05-19] VITALS (33 sets, daily range): BP systolic 122–153; BP diastolic 64–108; PULSE 63–107; RESP 10–71; O2SAT 93–96
[2023-05-19 04:39] LABS: HEMATOCRIT 41.2 % (42-54); MEAN CORPUSCULAR HEMOGLOBIN 27.9 pg (27.0-33.0); MEAN CORPUSCULAR HGB CONC 33.5 g/dL (32.0-36.0); MEAN CORPUSCULAR VOLUME 83.4 fL (79-99); RED BLOOD CELL COUNT(AUTO) 4.94 MIL/uL (4.50-6.20); RED CELL DISTRIBUTION WIDTH 12.8 % (11.0-15.5); WHITE BLOOD COUNT (AUTO) 8.7 K/uL (4.8-10.8)
[2023-05-19 04:53] LABS: HEMOGLOBIN A1C 11.7 % (4.0-6.0)
[2023-05-19 05:00] LABS: CREATININE 1.2 mg/dL (0.5-1.5); POTASSIUM 4.1 mmol/L (3.5-5.1)
[2023-05-19] MEDS: ALPRAZOLAM 1 MG TAB PO SCH ×4 (06:28→23:22)
[2023-05-19] MEDS: INSULIN HUMULIN R 100 UNIT/ML 3ML SQ SCH ×4 (06:30→21:52)
[2023-05-19] MEDS: INSULIN GLARGINE 100 UNITS/ML 10 ML VIAL SQ SCH ×2 (06:30→21:53)
[2023-05-19] MEDS: IPRATROPIUM 0.5 MG/2.5 ML INH IH SCH ×4 (07:07→23:49)
[2023-05-19] MEDS: PANTOPRAZOLE 40 MG/VIAL IVP SCH (08:10)
[2023-05-19] MEDS: LOSARTAN 100 MG TABLET PO SCH (08:11)
[2023-05-19] MEDS: HYDROCHLOROTHIAZIDE 25 MG TABLET PO SCH (08:11)
[2023-05-19] MEDS: SOLU-MEDROL 40MG VIAL IVP SCH (08:11)
[2023-05-19] MEDS: DOCUSATE SODIUM 100 MG CAP PO SCH ×2 (08:11→20:17)
[2023-05-19] MEDS: DIVALPROEX SODIUM 250 MG TABLET.DR PO SCH ×2 (08:11→20:18)
[2023-05-19] MEDS: GABAPENTIN 300 MG CAPSULE PO SCH ×3 (08:11→20:17)
[2023-05-19] MEDS: THIAMINE HCL 100 MG TABLET PO SCH (08:12)
[2023-05-19] MEDS: PAROXETINE HCL 20 MG TABLET PO SCH (08:12)
[2023-05-19] MEDS: AZITHROMYCIN 500MG+NS 250ML IV SCH (08:30)
[2023-05-19] MEDS: CEFTRIAXONE 2GM VIAL IVPB SCH (08:31)
[2023-05-19] MEDS: ENOXAPARIN SODIUM 40 MG/0.4 ML SYRINGE SQ SCH (08:42)
[2023-05-19] MEDS: MORPHINE 2 MG SYG IVP PRN (09:31)
[2023-05-19] MEDS: FUROSEMIDE 40MG VIAL IV SCH ×2 (11:56→23:17)
[2023-05-19] MEDS: CHLORDIAZEPOXIDE HCL 25 MG CAP PO PRN ×3 (12:56→18:04)
[2023-05-19] MEDS ORDERED: INSULIN HUMULIN R 100 UNIT/ML 3ML SQ ONE ×2 (18:30→20:40)
[2023-05-19] MEDS: QUETIAPINE FUMARATE 100 MG TAB PO SCH (20:17)
[2023-05-19 20:53] LABS: ABG BASE EXCESS 2.9 mmol/L (-2.0-3.0); ABG HCO3 27.4 mmol/L (21.0-28.0); ABG OXYGEN SATURATION 93.3 % (95.0-99.0); ABG PCO2 41 mmHg (35-48); ABG PH 7.438 (7.35-7.450); CARBON MONOXIDE 1.1; HHb 6.6; PO2, ARTERIAL BG 65.2 mmHg (83.0-108.0); VENT MODE, BG RA,21 (ROOM AIR)
[2023-05-19] MEDS ORDERED: PREDNISONE 20 MG TABLET PO SCH (21:00)
[2023-05-19] MEDS ORDERED: INSULIN GLARGINE 100 UNITS/ML 10 ML VIAL SQ SCH (21:00)
[2023-05-19 21:45] LABS: ALBUMIN 2.7 g/dL (3.5-5.0); BILIRUBIN,TOTAL 0.2 mg/dL (0.2-1.0); CREATININE 1.5 mg/dL (0.5-1.5); POTASSIUM 4.3 mmol/L (3.5-5.1); TOTAL PROTEIN, SERUM 7.6 g/dL (6.0-8.3)
[2023-05-19] MEDS ORDERED: INSULIN HUMULIN R 100 UNIT/ML 3ML SQ STA (22:46)
[2023-05-19] MEDS ORDERED: 0.9%NACL 1000ML 1,000 ML IV ONE (23:00)
[2023-05-19 23:33] LABS: CREATININE 1.4 mg/dL (0.5-1.5)
[2023-05-20] VITALS (12 sets, daily range): BP systolic 119–154; BP diastolic 72–92; PULSE 85–102; RESP 16–20; O2SAT 94–96
[2023-05-20] MEDS: MORPHINE 2 MG SYG IVP PRN (03:15)
[2023-05-20] MEDS: IPRATROPIUM 0.5 MG/2.5 ML INH IH SCH ×4 (07:20→23:54)
[2023-05-20] MEDS: ALPRAZOLAM 1 MG TAB PO SCH ×4 (07:53→23:57)
[2023-05-20] MEDS: INSULIN HUMULIN R 100 UNIT/ML 3ML SQ SCH ×7 (08:03→20:23)
[2023-05-20] MEDS: INSULIN GLARGINE 100 UNITS/ML 10 ML VIAL SQ SCH ×2 (08:04→20:22)
[2023-05-20] MEDS ORDERED: PREDNISONE 20 MG TABLET PO SCH ×2 (09:00)
[2023-05-20] MEDS: ENOXAPARIN SODIUM 40 MG/0.4 ML SYRINGE SQ SCH (09:00)
[2023-05-20] MEDS: CHLORDIAZEPOXIDE HCL 25 MG CAP PO PRN (09:15)
[2023-05-20] MEDS: PAROXETINE HCL 20 MG TABLET PO SCH (09:16)
[2023-05-20] MEDS: DIVALPROEX SODIUM 250 MG TABLET.DR PO SCH ×2 (09:16→20:30)
[2023-05-20] MEDS: GABAPENTIN 300 MG CAPSULE PO SCH ×3 (09:17→20:30)
[2023-05-20] MEDS: HYDROCHLOROTHIAZIDE 25 MG TABLET PO SCH (09:18)
[2023-05-20] MEDS: LOSARTAN 100 MG TABLET PO SCH (09:18)
[2023-05-20] MEDS: THIAMINE HCL 100 MG TABLET PO SCH (09:18)
[2023-05-20] MEDS: DOCUSATE SODIUM 100 MG CAP PO SCH ×2 (09:19→20:30)
[2023-05-20] MEDS: CEFTRIAXONE 2GM VIAL IVPB SCH (09:24)
[2023-05-20] MEDS: PANTOPRAZOLE 40 MG/VIAL IVP SCH (09:24)
[2023-05-20] MEDS: AZITHROMYCIN 500MG+NS 250ML IV SCH (10:44)
[2023-05-20] MEDS: FUROSEMIDE 40MG VIAL IV SCH ×3 (12:22→23:57)
[2023-05-20] MEDS: QUETIAPINE FUMARATE 100 MG TAB PO SCH (20:30)
[2023-05-21] VITALS (11 sets, daily range): BP systolic 117–157; BP diastolic 68–90; PULSE 80–116; RESP 18–20; O2SAT 92–94
[2023-05-21] MEDS: ALPRAZOLAM 1 MG TAB PO SCH ×2 (06:09→12:21)
[2023-05-21] MEDS: INSULIN GLARGINE 100 UNITS/ML 10 ML VIAL SQ SCH (06:27)
[2023-05-21] MEDS: INSULIN HUMULIN R 100 UNIT/ML 3ML SQ SCH ×8 (06:28→19:51)
[2023-05-21] MEDS: IPRATROPIUM 0.5 MG/2.5 ML INH IH SCH ×3 (07:09→19:30)
[2023-05-21] MEDS: MORPHINE 2 MG SYG IVP PRN ×3 (08:34→19:52)
[2023-05-21] MEDS: LOSARTAN 100 MG TABLET PO SCH (09:38)
[2023-05-21] MEDS: DOCUSATE SODIUM 100 MG CAP PO SCH ×2 (09:38→19:44)
[2023-05-21] MEDS: AZITHROMYCIN 500MG+NS 250ML IV SCH (09:38)
[2023-05-21] MEDS: HYDROCHLOROTHIAZIDE 25 MG TABLET PO SCH (09:38)
[2023-05-21] MEDS: GABAPENTIN 300 MG CAPSULE PO SCH ×3 (09:38→19:44)
[2023-05-21] MEDS: CEFTRIAXONE 2GM VIAL IVPB SCH (09:38)
[2023-05-21] MEDS: PAROXETINE HCL 20 MG TABLET PO SCH (09:38)
[2023-05-21] MEDS: DIVALPROEX SODIUM 250 MG TABLET.DR PO SCH ×2 (09:38→19:44)
[2023-05-21] MEDS: THIAMINE HCL 100 MG TABLET PO SCH (09:39)
[2023-05-21] MEDS: PANTOPRAZOLE 40 MG/VIAL IVP SCH (09:40)
[2023-05-21] MEDS: ENOXAPARIN SODIUM 40 MG/0.4 ML SYRINGE SQ SCH (09:41)
[2023-05-21] MEDS: FUROSEMIDE 40MG VIAL IV SCH (12:22)
[2023-05-21] MEDS: ZOLPIDEM TARTRATE 5 MG TAB PO PRN (17:02)
[2023-05-21] MEDS: QUETIAPINE FUMARATE 100 MG TAB PO SCH (19:44)
[2023-05-21] MEDS: BACLOFEN 10 MG TABLET PO SCH (20:29)
[2023-05-21] MEDS ORDERED: RISPERIDONE 1 MG TABLET PO SCH (21:00)
[2023-05-22] VITALS (15 sets, daily range): BP systolic 103–155; BP diastolic 52–88; PULSE 83–127; RESP 18–32; O2SAT 94–97
[2023-05-22] MEDS: MORPHINE 2 MG SYG IVP PRN ×2 (00:07→17:27)
[2023-05-22] MEDS: IPRATROPIUM 0.5 MG/2.5 ML INH IH SCH ×4 (01:00→18:00)
[2023-05-22] MEDS ORDERED: KETOROLAC 30MG VIAL (30MG/ML) IVP ONE (01:30)
[2023-05-22] MEDS ORDERED: DiphenhydrAMINE HCL 50 MG/ML VIAL IV ONE (01:30)
[2023-05-22 04:36] LABS: BASOPHILS # (AUTO) 0.06 K/uL (0.00-0.20); BASOPHILS % (AUTO) 0.3 % (0.0-5.0); EOSINOPHILS # (AUTO) 0.06 K/uL (0.00-0.70); EOSINOPHILS % (AUTO) 0.3 % (0.0-8.0); IMMATURE GRANULOCYTE ABSOLUTE 0.41 K/uL (0-1); LYMPHOCYTES # (AUTO) 1.1 K/uL (1.0-4.8); LYMPHOCYTES % (AUTO) 6.4 % (21.0-51.0); MEAN CORPUSCULAR HEMOGLOBIN 28.2 pg (27.0-33.0); MEAN CORPUSCULAR HGB CONC 32.9 g/dL (32.0-36.0); MEAN CORPUSCULAR VOLUME 85.7 fL (79-99); MONOCYTES # (AUTO) 1.3 K/uL (0.1-1.0); MONOCYTES % (AUTO) 7.4 % (3.0-13.0); NEUTROPHILS # (AUTO) 14.5 K/uL (1.8-7.7); NEUTROPHILS % (AUTO) 83.2 % (40.0-77.0); PLATELET COUNT (AUTO) 275 K/uL (130-400); RED BLOOD CELL COUNT(AUTO) 5.25 MIL/uL (4.50-6.20); RED CELL DISTRIBUTION WIDTH 12.9 % (11.0-15.5); WHITE BLOOD COUNT (AUTO) 17.4 K/uL (4.8-10.8)
[2023-05-22 04:49] LABS: ALBUMIN 2.8 g/dL (3.5-5.0); BILIRUBIN,TOTAL 0.4 mg/dL (0.2-1.0); CREATININE 2.5 mg/dL (0.5-1.5); MAGNESIUM 1.7 mg/dL (1.80-2.40); PHOSPHORUS 5.7 mg/dL (2.5-4.9); POTASSIUM 3.8 mmol/L (3.5-5.1); TOTAL PROTEIN, SERUM 7.2 g/dL (6.0-8.3)
[2023-05-22] MEDS: MAGNESIUM 2GM PREMIX 50ML 50 ML IV PRN (05:36)
[2023-05-22] MEDS: INSULIN HUMULIN R 100 UNIT/ML 3ML SQ SCH ×6 (06:21→21:31)
[2023-05-22] MEDS ORDERED: ALPRAZOLAM 1 MG TAB PO SCH (08:00)
[2023-05-22] MEDS ORDERED: INSULIN GLARGINE 100 UNITS/ML 10 ML VIAL SQ SCH (09:00)
[2023-05-22] MEDS ORDERED: 0.9% NACL 250ML 250 ML IV SCH (10:00)
[2023-05-22] MEDS: PANTOPRAZOLE 40 MG/VIAL IVP SCH (10:12)
[2023-05-22] MEDS: CEFTRIAXONE 2GM VIAL IVPB SCH (10:12)
[2023-05-22] MEDS: ENOXAPARIN SODIUM 40 MG/0.4 ML SYRINGE SQ SCH (10:12)
[2023-05-22] MEDS: BACLOFEN 10 MG TABLET PO SCH ×3 (10:15→20:25)
[2023-05-22] MEDS: DOCUSATE SODIUM 100 MG CAP PO SCH ×2 (10:15→20:25)
[2023-05-22] MEDS: DIVALPROEX SODIUM 250 MG TABLET.DR PO SCH (10:16)
[2023-05-22] MEDS: PAROXETINE HCL 20 MG TABLET PO SCH (10:17)
[2023-05-22] MEDS: GABAPENTIN 300 MG CAPSULE PO SCH ×3 (10:17→20:12)
[2023-05-22] MEDS: THIAMINE HCL 100 MG TABLET PO SCH (10:17)
[2023-05-22] MEDS: INSULIN GLARGINE 100 UNITS/ML 10 ML VIAL SQ SCH (10:43)
[2023-05-22] MEDS: ALPRAZOLAM 1 MG TAB PO SCH ×2 (13:52→20:13)
[2023-05-22] MEDS: AMLODIPINE 5 MG TAB PO SCH (13:52)
[2023-05-22] MEDS: 0.9%NACL 1000ML 1,000 ML IV SCH ×2 (14:14→20:00)
[2023-05-22] MEDS ORDERED: MORPHINE 2 MG SYG IVP PRN (17:30)
[2023-05-22] MEDS ORDERED: CYCLOBENZAPRINE HCL 10 MG TABLET PO ONE (18:30)
[2023-05-22] MEDS ORDERED: BUDESONIDE 0.5 MG/2 ML INH IH ONE (20:06)
[2023-05-22] MEDS ORDERED: IPRATROPIUM 0.5 MG/2.5 ML INH IH ONE (20:06)
[2023-05-22] MEDS ORDERED: QUETIAPINE FUMARATE 100 MG TAB ONE ×2 (20:08→20:12)
[2023-05-22] MEDS ORDERED: DOCUSATE SODIUM 100 MG CAP PO ONE (20:09)
[2023-05-22] MEDS: QUETIAPINE FUMARATE 100 MG TAB PO SCH (20:12)
[2023-05-22] MEDS: BACLOFEN 10 MG TABLET PO PRN (20:12)
[2023-05-22] MEDS: BUDESONIDE 0.5 MG/2 ML INH IH SCH (20:27)
[2023-05-22] MEDS ORDERED: RISPERIDONE 1 MG TABLET PO SCH (21:00)
[2023-05-23] VITALS (37 sets, daily range): BP systolic 99–157; BP diastolic 52–103; PULSE 87–120; RESP 13–99; O2SAT 92–100
[2023-05-23] MEDS ORDERED: IPRATROPIUM 0.5 MG/2.5 ML INH IH ONE (00:03)
[2023-05-23] MEDS: IPRATROPIUM 0.5 MG/2.5 ML INH IH SCH ×5 (01:29→23:37)
[2023-05-23] MEDS: BACLOFEN 10 MG TABLET PO PRN (05:48)
[2023-05-23] MEDS: 0.9%NACL 1000ML 1,000 ML IV SCH (06:00)
[2023-05-23] MEDS ORDERED: BUDESONIDE 0.5 MG/2 ML INH IH ONE (06:20)
[2023-05-23] MEDS: BUDESONIDE 0.5 MG/2 ML INH IH SCH ×2 (07:08→19:14)
[2023-05-23] MEDS: INSULIN HUMULIN R 100 UNIT/ML 3ML SQ SCH ×4 (07:30→21:52)
[2023-05-23] MEDS: GABAPENTIN 300 MG CAPSULE PO SCH ×3 (08:30→21:17)
[2023-05-23] MEDS: ALPRAZOLAM 1 MG TAB PO SCH ×2 (08:30→21:00)
[2023-05-23] MEDS: THIAMINE HCL 100 MG TABLET PO SCH (08:30)
[2023-05-23] MEDS: BACLOFEN 10 MG TABLET PO SCH ×3 (08:31→21:00)
[2023-05-23] MEDS: CEFTRIAXONE 2GM VIAL IVPB SCH (08:31)
[2023-05-23] MEDS: ENOXAPARIN SODIUM 40 MG/0.4 ML SYRINGE SQ SCH (08:32)
[2023-05-23] MEDS: AMLODIPINE 5 MG TAB PO SCH (08:33)
[2023-05-23] MEDS: INSULIN GLARGINE 100 UNITS/ML 10 ML VIAL SQ SCH (08:41)
[2023-05-23] MEDS: DOCUSATE SODIUM 100 MG CAP PO SCH ×2 (08:42→21:00)
[2023-05-23] MEDS: DIVALPROEX SODIUM 250 MG TABLET.DR PO SCH (08:47)
[2023-05-23] MEDS: PAROXETINE HCL 20 MG TABLET PO SCH (08:47)
[2023-05-23] MEDS: AZITHROMYCIN 250 MG TABLET PO SCH (08:48)
[2023-05-23] MEDS ORDERED: PANTOPRAZOLE 40 MG TAB DR PO SCH (09:00)
[2023-05-23] MEDS ORDERED: CARVEDILOL 3.125 MG TABLET PO SCH (09:00)
[2023-05-23 11:12] LABS: ABG BASE EXCESS 5.3 mmol/L (-2.0-3.0); ABG HCO3 30.5 mmol/L (21.0-28.0); ABG OXYGEN SATURATION 95.3 % (95.0-99.0); ABG PCO2 46 mmHg (35-48); ABG PH 7.436 (7.35-7.450); CARBON MONOXIDE 1.9; DEVICE COMMENT RR; HHb 4.6; PO2, ARTERIAL BG 70.5 mmHg (83.0-108.0); VENT MODE, BG RA (ROOM AIR)
[2023-05-23] MEDS ORDERED: FUROSEMIDE 40MG VIAL IV ONE (11:38)
[2023-05-23 11:54] LABS: BASOPHILS # (AUTO) 0.08 K/uL (0.00-0.20); BASOPHILS % (AUTO) 0.4 % (0.0-5.0); EOSINOPHILS # (AUTO) 0.04 K/uL (0.00-0.70); EOSINOPHILS % (AUTO) 0.2 % (0.0-8.0); HEMATOCRIT 45.5 % (42-54); IMMATURE GRANULOCYTE ABSOLUTE 0.49 K/uL (0-1); LYMPHOCYTES % (AUTO) 4.5 % (21.0-51.0); MEAN CORPUSCULAR HEMOGLOBIN 28.6 pg (27.0-33.0); MEAN CORPUSCULAR HGB CONC 34.3 g/dL (32.0-36.0); MEAN CORPUSCULAR VOLUME 83.5 fL (79-99); MONOCYTES # (AUTO) 1.5 K/uL (0.1-1.0); MONOCYTES % (AUTO) 6.6 % (3.0-13.0); NEUTROPHILS # (AUTO) 18.8 K/uL (1.8-7.7); NEUTROPHILS % (AUTO) 86.1 % (40.0-77.0); PLATELET COUNT (AUTO) 288 K/uL (130-400); RED BLOOD CELL COUNT(AUTO) 5.45 MIL/uL (4.50-6.20); WHITE BLOOD COUNT (AUTO) 21.9 K/uL (4.8-10.8)
[2023-05-23 12:06] LABS: CREATININE 1.1 mg/dL (0.5-1.5); POTASSIUM 4.2 mmol/L (3.5-5.1)
[2023-05-23 12:07] LABS: INR 1.02 (0.85-1.15); PROTHROMBIN TIME 11.8 SEC (9.6-11.6)
[2023-05-23 12:55] LABS: B-TYPE NATRIURETIC PEPTIDE 11 pg/mL (0-100)
[2023-05-23 13:09] LABS: CREATININE 1.2 mg/dL (0.5-1.5); POTASSIUM 3.9 mmol/L (3.5-5.1)
[2023-05-23 13:30] LABS: ALBUMIN 2.6 g/dL (3.5-5.0)
[2023-05-23 14:45] LABS: BILIRUBIN,TOTAL 0.5 mg/dL (0.2-1.0); MAGNESIUM 2.1 mg/dL (1.80-2.40); PHOSPHORUS 3.4 mg/dL (2.5-4.9); TOTAL PROTEIN, SERUM 8.2 g/dL (6.0-8.3)
[2023-05-23] MEDS: DEXMEDETOMIDINE 400MCG/NS100ML IV SCH ×3 (15:14→23:35)
[2023-05-23] MEDS ORDERED: MORPHINE 2 MG SYG IVP ONE (15:30)
[2023-05-23] MEDS ORDERED: PROPOFOL 1000 MG/100 ML 100 ML IV ONE (15:56)
[2023-05-23] MEDS ORDERED: PROPOFOL 1000 MG/100 ML 1,000 MG in PROPOFOL 1000 MG/100 ML 100 ML IV PRN (16:00)
[2023-05-23] MEDS ORDERED: FENTANYL 2500MCG+NS 250ML 250 ML IV SCH ×2 (16:00→16:30)
[2023-05-23] MEDS ORDERED: MIDAZOLAM 50MG-0.9% NS 50ML 1 ML in MIDAZOLAM 50MG-0.9% NS 50ML 50 ML IV SCH (16:30)
[2023-05-23] MEDS ORDERED: FENTANYL 1000MCG+NS 100ML 100 ML IV SCH ×2 (16:30)
[2023-05-23] MEDS: NOREPINEPHRIN 4MG/NS 250ML 250 ML IV SCH ×2 (16:58→21:46)
[2023-05-23] MEDS ORDERED: CISATRACURIUM BESYLATE 100 MG in 0.9%NACL 100ML 100 ML IV SCH (17:00)
[2023-05-23] MEDS ORDERED: NOREPINEPHRIN 4MG/NS 250ML 250 ML IV PRN (17:00)
[2023-05-23 17:18] LABS: ABG BASE EXCESS 3.7 mmol/L (-2.0-3.0); ABG HCO3 32.7 mmol/L (21.0-28.0); ABG OXYGEN SATURATION 72.5 % (95.0-99.0); ABG PCO2 70 mmHg (35-48); ABG PH 7.289 (7.35-7.450); CARBON MONOXIDE 1.4; DEVICE COMMENT LR; PO2, ARTERIAL BG < 45.0 mmHg (83.0-108.0); VENT MODE, BG VENT (ROOM AIR)
[2023-05-23] MEDS: PANTOPRAZOLE 40 MG/VIAL IVP SCH (18:23)
[2023-05-23] MEDS: PROPOFOL 1000 MG/100 ML 100 ML IV PRN ×2 (19:26→22:57)
[2023-05-23] MEDS: QUETIAPINE FUMARATE 100 MG TAB PO SCH (21:17)
[2023-05-24] VITALS (99 sets, daily range): BP systolic 93–163; BP diastolic 44–88; PULSE 69–102; RESP 10–36; TEMP 99.7; O2SAT 94–99
[2023-05-24] MEDS: PROPOFOL 1000 MG/100 ML 100 ML IV PRN ×8 (01:02→21:44)
[2023-05-24] MEDS: DEXMEDETOMIDINE 400MCG/NS100ML IV SCH ×7 (02:39→21:43)
[2023-05-24] MEDS: ACETAMINOPHEN 325 MG TAB PO PRN ×3 (02:54→13:35)
[2023-05-24 03:35] LABS: ABG BASE EXCESS 4.8 mmol/L (-2.0-3.0); ABG HCO3 27.7 mmol/L (21.0-28.0); ABG OXYGEN SATURATION 99.4 % (95.0-99.0); ABG PCO2 36 mmHg (35-48); ABG PH 7.506 (7.35-7.450); CARBON MONOXIDE 0.8; HHb 0.6; PO2, ARTERIAL BG 208.8 mmHg (83.0-108.0); VENT MODE, BG AC (ROOM AIR)
[2023-05-24 04:41] LABS: BILIRUBIN,TOTAL 0.5 mg/dL (0.2-1.0); CREATININE 1.2 mg/dL (0.5-1.5); POTASSIUM 4.2 mmol/L (3.5-5.1)
[2023-05-24 04:48] LABS: ALBUMIN 2.1 g/dL (3.5-5.0)
[2023-05-24] MEDS: NOREPINEPHRIN 4MG/NS 250ML 250 ML IV SCH ×2 (05:29→12:35)
[2023-05-24] MEDS: INSULIN HUMULIN R 100 UNIT/ML 3ML SQ SCH ×5 (06:04→21:00)
[2023-05-24] MEDS: BUDESONIDE 0.5 MG/2 ML INH IH SCH ×2 (06:36→18:52)
[2023-05-24] MEDS: IPRATROPIUM 0.5 MG/2.5 ML INH IH SCH ×5 (06:36→23:06)
[2023-05-24] MEDS: CEFTRIAXONE 2GM VIAL IVPB SCH (08:21)
[2023-05-24] MEDS: AZITHROMYCIN 250 MG TABLET PO SCH (08:21)
[2023-05-24] MEDS: THIAMINE HCL 100 MG TABLET PO SCH (08:22)
[2023-05-24] MEDS: DIVALPROEX SODIUM 250 MG TABLET.DR PO SCH (08:22)
[2023-05-24] MEDS: BACLOFEN 10 MG TABLET PO SCH ×3 (08:22→22:36)
[2023-05-24] MEDS: DOCUSATE SODIUM 100 MG CAP PO SCH ×2 (08:22→22:36)
[2023-05-24] MEDS: PANTOPRAZOLE 40 MG/VIAL IVP SCH (08:23)
[2023-05-24] MEDS: PAROXETINE HCL 20 MG TABLET PO SCH (08:23)
[2023-05-24] MEDS: ENOXAPARIN SODIUM 40 MG/0.4 ML SYRINGE SQ SCH (08:23)
[2023-05-24] MEDS: GABAPENTIN 300 MG CAPSULE PO SCH ×3 (08:23→22:36)
[2023-05-24] MEDS: INSULIN GLARGINE 100 UNITS/ML 10 ML VIAL SQ SCH (08:29)
[2023-05-24] MEDS: AMLODIPINE 5 MG TAB PO SCH (09:00)
[2023-05-24] MEDS: ALPRAZOLAM 1 MG TAB PO SCH ×2 (09:00→14:13)
[2023-05-24 10:37] LABS: BASOPHILS # (AUTO) 0.07 K/uL (0.00-0.20); BASOPHILS % (AUTO) 0.4 % (0.0-5.0); EOSINOPHILS # (AUTO) 0.06 K/uL (0.00-0.70); EOSINOPHILS % (AUTO) 0.3 % (0.0-8.0); HEMATOCRIT 42.8 % (42-54); IMMATURE GRANULOCYTE ABSOLUTE 0.31 K/uL (0-1); LYMPHOCYTES # (AUTO) 1.2 K/uL (1.0-4.8); LYMPHOCYTES % (AUTO) 6.4 % (21.0-51.0); MEAN CORPUSCULAR HEMOGLOBIN 28.6 pg (27.0-33.0); MEAN CORPUSCULAR HGB CONC 32.7 g/dL (32.0-36.0); MEAN CORPUSCULAR VOLUME 87.5 fL (79-99); MONOCYTES # (AUTO) 1.1 K/uL (0.1-1.0); MONOCYTES % (AUTO) 5.8 % (3.0-13.0); NEUTROPHILS # (AUTO) 15.5 K/uL (1.8-7.7); NEUTROPHILS % (AUTO) 85.4 % (40.0-77.0); PLATELET COUNT (AUTO) 290 K/uL (130-400); RED BLOOD CELL COUNT(AUTO) 4.89 MIL/uL (4.50-6.20); RED CELL DISTRIBUTION WIDTH 13.1 % (11.0-15.5); WHITE BLOOD COUNT (AUTO) 18.2 K/uL (4.8-10.8)
[2023-05-24] MEDS ORDERED: VANCOMYCIN PROTOCOL PER PHARMACY IV SCH (11:00)
[2023-05-24] MEDS: LEVOFLOXACIN 500 MG/D5W 100 ML 100 ML IV SCH (12:04)
[2023-05-24] MEDS: ZOSYN 3.375GM +NS 50ML IV SCH ×2 (12:39→22:36)
[2023-05-24] MEDS: VANCOMYCIN 1G/250ML KIT 250 ML IV SCH ×2 (12:43→23:36)
[2023-05-24] MEDS: ACETYLCYSTEINE 10% 100MG/ML 4ML VIAL IH SCH ×2 (18:52→23:06)
[2023-05-24] MEDS: QUETIAPINE FUMARATE 100 MG TAB PO SCH (22:36)
[2023-05-25] VITALS (106 sets, daily range): BP systolic 74–143; BP diastolic 52–92; PULSE 59–96; RESP 7–29; O2SAT 92–99
[2023-05-25] MEDS: DEXMEDETOMIDINE 400MCG/NS100ML IV SCH ×7 (01:43→21:58)
[2023-05-25] MEDS: PROPOFOL 1000 MG/100 ML 100 ML IV PRN ×6 (01:44→20:39)
[2023-05-25 03:39] LABS: ABG BASE EXCESS 2.2 mmol/L (-2.0-3.0); ABG HCO3 26.9 mmol/L (21.0-28.0); ABG OXYGEN SATURATION 95.9 % (95.0-99.0); ABG PCO2 42 mmHg (35-48); ABG PH 7.421 (7.35-7.450); CARBON MONOXIDE 1.1; DEVICE COMMENT RR RN ROBERT; PO2, ARTERIAL BG 78.4 mmHg (83.0-108.0); VENT MODE, BG AC (ROOM AIR)
[2023-05-25] MEDS: ZOSYN 3.375GM +NS 50ML IV SCH ×3 (04:40→22:36)
[2023-05-25 05:05] LABS: BASOPHILS # (AUTO) 0.05 K/uL (0.00-0.20); BASOPHILS % (AUTO) 0.3 % (0.0-5.0); EOSINOPHILS # (AUTO) 0.16 K/uL (0.00-0.70); EOSINOPHILS % (AUTO) 1.1 % (0.0-8.0); HEMATOCRIT 39.7 % (42-54); IMMATURE GRANULOCYTE ABSOLUTE 0.23 K/uL (0-1); LYMPHOCYTES # (AUTO) 1.5 K/uL (1.0-4.8); LYMPHOCYTES % (AUTO) 10.3 % (21.0-51.0); MEAN CORPUSCULAR HEMOGLOBIN 28.3 pg (27.0-33.0); MEAN CORPUSCULAR HGB CONC 32.7 g/dL (32.0-36.0); MEAN CORPUSCULAR VOLUME 86.3 fL (79-99); MONOCYTES % (AUTO) 7.1 % (3.0-13.0); NEUTROPHILS # (AUTO) 11.6 K/uL (1.8-7.7); NEUTROPHILS % (AUTO) 79.6 % (40.0-77.0); PLATELET COUNT (AUTO) 236 K/uL (130-400); RED CELL DISTRIBUTION WIDTH 13.2 % (11.0-15.5); WHITE BLOOD COUNT (AUTO) 14.6 K/uL (4.8-10.8)
[2023-05-25 05:09] LABS: CREATININE 0.9 mg/dL (0.5-1.5); POTASSIUM 3.8 mmol/L (3.5-5.1)
[2023-05-25] MEDS: NOREPINEPHRIN 4MG/NS 250ML 250 ML IV SCH ×2 (05:36→20:56)
[2023-05-25] MEDS: POTASSIUM CHLORIDE 10% ELIXIR 20 MEQ/15 ML UDCUP PO PRN (06:15)
[2023-05-25] MEDS: INSULIN HUMULIN R 100 UNIT/ML 3ML SQ SCH ×6 (06:25→20:41)
[2023-05-25] MEDS: ACETYLCYSTEINE 10% 100MG/ML 4ML VIAL IH SCH ×4 (06:35→23:34)
[2023-05-25] MEDS: IPRATROPIUM 0.5 MG/2.5 ML INH IH SCH ×4 (06:35→23:34)
[2023-05-25] MEDS: BUDESONIDE 0.5 MG/2 ML INH IH SCH ×2 (06:35→18:27)
[2023-05-25] MEDS: PANTOPRAZOLE 40 MG/VIAL IVP SCH (08:40)
[2023-05-25] MEDS: DIVALPROEX SODIUM 250 MG TABLET.DR PO SCH (08:40)
[2023-05-25] MEDS: THIAMINE HCL 100 MG TABLET PO SCH (08:41)
[2023-05-25] MEDS: ENOXAPARIN SODIUM 40 MG/0.4 ML SYRINGE SQ SCH (08:41)
[2023-05-25] MEDS: DOCUSATE SODIUM 100 MG CAP PO SCH ×2 (08:41→20:34)
[2023-05-25] MEDS: PAROXETINE HCL 20 MG TABLET PO SCH (08:41)
[2023-05-25] MEDS: GABAPENTIN 300 MG CAPSULE PO SCH ×3 (08:42→20:35)
[2023-05-25] MEDS: BACLOFEN 10 MG TABLET PO SCH ×3 (08:42→20:34)
[2023-05-25] MEDS: ALPRAZOLAM 1 MG TAB PO SCH (08:42)
[2023-05-25] MEDS: INSULIN GLARGINE 100 UNITS/ML 10 ML VIAL SQ SCH (08:47)
[2023-05-25] MEDS: AMLODIPINE 5 MG TAB PO SCH (09:00)
[2023-05-25] MEDS: LEVOFLOXACIN 500 MG/D5W 100 ML 100 ML IV SCH (11:05)
[2023-05-25] MEDS: FUROSEMIDE 40MG VIAL IV SCH ×2 (11:29→20:33)
[2023-05-25] MEDS: VANCOMYCIN 1G/250ML KIT 250 ML IV SCH ×2 (12:39→20:34)
[2023-05-25 17:00] LABS: TOTAL PROTEIN,BODY FLUID 5.4 g/dL
[2023-05-25 17:21] LABS: GLUCOSE PLEURAL FLUID 46
[2023-05-25 17:29] LABS: BODY FLUID RBC 5828 /cu. mm.; BODY FLUID WBC 152 /cu. mm.
[2023-05-25 17:30] LABS: PH PLEURAL FLUID 8
[2023-05-25 19:43] LABS: APPEARANCE BODY FLUID SLIGHTLY CLOUDY (CLEAR); COLOR,BODY FLUID ORANGE (LT YELLOW); SPECIMENTYPE,BODY FLUID PLEURAL; TOTAL VOLUME,BODY FLUID 2.5 mL
[2023-05-25 20:01] LABS: BF LYMPHOCYTE 4 %; BF TOTAL CELLS COUNTED 100
[2023-05-25] MEDS: QUETIAPINE FUMARATE 100 MG TAB PO SCH (20:34)
[2023-05-26] VITALS (104 sets, daily range): BP systolic 79–149; BP diastolic 46–83; PULSE 69–108; RESP 11–37; O2SAT 94–97
[2023-05-26] MEDS: DEXMEDETOMIDINE 400MCG/NS100ML IV SCH ×7 (01:07→23:13)
[2023-05-26] MEDS: PROPOFOL 1000 MG/100 ML 100 ML IV PRN ×6 (02:07→23:12)
[2023-05-26 03:49] LABS: ABG BASE EXCESS 5.6 mmol/L (-2.0-3.0); ABG HCO3 29.5 mmol/L (21.0-28.0); ABG OXYGEN SATURATION 95.4 % (95.0-99.0); ABG PCO2 40 mmHg (35-48); ABG PH 7.482 (7.35-7.450); CARBON MONOXIDE 1.1; HHb 4.5; PO2, ARTERIAL BG 69.5 mmHg (83.0-108.0); VENT MODE, BG ACVC (ROOM AIR)
[2023-05-26] MEDS: POTASSIUM CHLORIDE 10% ELIXIR 20 MEQ/15 ML UDCUP PO PRN ×3 (04:14→18:01)
[2023-05-26] MEDS: FUROSEMIDE 40MG VIAL IV SCH ×3 (04:14→18:21)
[2023-05-26 04:42] LABS: BASOPHILS # (AUTO) 0.04 K/uL (0.00-0.20); BASOPHILS % (AUTO) 0.5 % (0.0-5.0); EOSINOPHILS # (AUTO) 0.16 K/uL (0.00-0.70); EOSINOPHILS % (AUTO) 1.8 % (0.0-8.0); HEMATOCRIT 38.8 % (42-54); IMMATURE GRANULOCYTE ABSOLUTE 0.12 K/uL (0-1); LYMPHOCYTES # (AUTO) 1.2 K/uL (1.0-4.8); LYMPHOCYTES % (AUTO) 13.2 % (21.0-51.0); MEAN CORPUSCULAR HEMOGLOBIN 28.3 pg (27.0-33.0); MEAN CORPUSCULAR HGB CONC 32.7 g/dL (32.0-36.0); MEAN CORPUSCULAR VOLUME 86.4 fL (79-99); MONOCYTES # (AUTO) 0.8 K/uL (0.1-1.0); MONOCYTES % (AUTO) 9.6 % (3.0-13.0); NEUTROPHILS # (AUTO) 6.4 K/uL (1.8-7.7); NEUTROPHILS % (AUTO) 73.5 % (40.0-77.0); PLATELET COUNT (AUTO) 262 K/uL (130-400); RED BLOOD CELL COUNT(AUTO) 4.49 MIL/uL (4.50-6.20); RED CELL DISTRIBUTION WIDTH 13.2 % (11.0-15.5); WHITE BLOOD COUNT (AUTO) 8.7 K/uL (4.8-10.8)
[2023-05-26 05:14] LABS: CREATININE 0.9 mg/dL (0.5-1.5); POTASSIUM 3.3 mmol/L (3.5-5.1)
[2023-05-26] MEDS: VANCOMYCIN 1G/250ML KIT 250 ML IV SCH ×3 (05:25→20:37)
[2023-05-26] MEDS: ACETYLCYSTEINE 10% 100MG/ML 4ML VIAL IH SCH ×4 (06:14→23:24)
[2023-05-26] MEDS: IPRATROPIUM 0.5 MG/2.5 ML INH IH SCH ×4 (06:14→23:23)
[2023-05-26] MEDS: INSULIN HUMULIN R 100 UNIT/ML 3ML SQ SCH ×4 (06:30→20:38)
[2023-05-26] MEDS: BUDESONIDE 0.5 MG/2 ML INH IH SCH ×2 (07:19→18:25)
[2023-05-26] MEDS: ZOSYN 3.375GM +NS 50ML IV SCH ×3 (07:19→23:13)
[2023-05-26] MEDS: PAROXETINE HCL 20 MG TABLET PO SCH (08:21)
[2023-05-26] MEDS: THIAMINE HCL 100 MG TABLET PO SCH (08:21)
[2023-05-26] MEDS: DIVALPROEX SODIUM 250 MG TABLET.DR PO SCH (08:21)
[2023-05-26] MEDS: PANTOPRAZOLE 40 MG/VIAL IVP SCH (08:21)
[2023-05-26] MEDS: GABAPENTIN 300 MG CAPSULE PO SCH ×3 (08:22→20:37)
[2023-05-26] MEDS: AMLODIPINE 5 MG TAB PO SCH (08:22)
[2023-05-26] MEDS: BACLOFEN 10 MG TABLET PO SCH ×3 (08:22→20:38)
[2023-05-26] MEDS: DOCUSATE SODIUM 100 MG CAP PO SCH ×2 (08:22→20:38)
[2023-05-26] MEDS: ENOXAPARIN SODIUM 40 MG/0.4 ML SYRINGE SQ SCH (08:23)
[2023-05-26] MEDS: INSULIN GLARGINE 100 UNITS/ML 10 ML VIAL SQ SCH (08:24)
[2023-05-26] MEDS: LEVOFLOXACIN 500 MG/D5W 100 ML 100 ML IV SCH (11:03)
[2023-05-26] MEDS ORDERED: ALTEPLASE 2MG VIAL 2 MG/VIAL VIAL INJ SCH (15:00)
[2023-05-26] MEDS ORDERED: PHARMACY COMMUNICATION MISC SCH (15:00)
[2023-05-26] MEDS ORDERED: MIDAZOLAM HCL 1 MG/ML 2ML VIAL ONE (15:34)
[2023-05-26] MEDS ORDERED: MIDAZOLAM HCL 1 MG/ML 2ML VIAL IVP SCH (16:00)
[2023-05-26] MEDS: POTASSIUM CHLORIDE 20MEQ/100ML 100 ML IV PRN (18:00)
[2023-05-26] MEDS: ACETAMINOPHEN 325 MG TAB PO PRN (18:01)
[2023-05-26] MEDS: QUETIAPINE FUMARATE 100 MG TAB PO SCH (20:37)
[2023-05-26] MEDS: POLYETHYLENE GLYCOL 3350 17 GM POWD.PACK PO SCH (20:38)
[2023-05-27] VITALS (73 sets, daily range): BP systolic 90–128; BP diastolic 38–77; PULSE 66–100; RESP 14–34; O2SAT 92–99
[2023-05-27] MEDS: DEXMEDETOMIDINE 400MCG/NS100ML IV SCH ×6 (02:04→21:56)
[2023-05-27] MEDS: FUROSEMIDE 40MG VIAL IV SCH ×3 (03:16→21:15)
[2023-05-27] MEDS: PROPOFOL 1000 MG/100 ML 100 ML IV PRN ×6 (03:23→21:57)
[2023-05-27 04:07] LABS: ABG BASE EXCESS 0.1 mmol/L (-2.0-3.0); ABG HCO3 24.8 mmol/L (21.0-28.0); ABG OXYGEN SATURATION 92.5 % (95.0-99.0); ABG PCO2 40 mmHg (35-48); ABG PH 7.406 (7.35-7.450); DEVICE COMMENT RR; PO2, ARTERIAL BG 63.7 mmHg (83.0-108.0)
[2023-05-27 04:49] LABS: BASOPHILS # (AUTO) 0.05 K/uL (0.00-0.20); BASOPHILS % (AUTO) 0.4 % (0.0-5.0); EOSINOPHILS # (AUTO) 0.02 K/uL (0.00-0.70); EOSINOPHILS % (AUTO) 0.1 % (0.0-8.0); HEMATOCRIT 41.8 % (42-54); IMMATURE GRANULOCYTE ABSOLUTE 0.17 K/uL (0-1); LYMPHOCYTES # (AUTO) 0.8 K/uL (1.0-4.8); LYMPHOCYTES % (AUTO) 5.8 % (21.0-51.0); MEAN CORPUSCULAR HEMOGLOBIN 27.7 pg (27.0-33.0); MEAN CORPUSCULAR HGB CONC 32.1 g/dL (32.0-36.0); MEAN CORPUSCULAR VOLUME 86.5 fL (79-99); MONOCYTES # (AUTO) 1.1 K/uL (0.1-1.0); MONOCYTES % (AUTO) 8.1 % (3.0-13.0); NEUTROPHILS # (AUTO) 11.8 K/uL (1.8-7.7); NEUTROPHILS % (AUTO) 84.4 % (40.0-77.0); PLATELET COUNT (AUTO) 306 K/uL (130-400); RED BLOOD CELL COUNT(AUTO) 4.83 MIL/uL (4.50-6.20); RED CELL DISTRIBUTION WIDTH 13.4 % (11.0-15.5)
[2023-05-27] MEDS: VANCOMYCIN 1G/250ML KIT 250 ML IV SCH ×3 (04:58→21:10)
[2023-05-27 05:02] LABS: CREATININE 1.2 mg/dL (0.5-1.5); POTASSIUM 3.8 mmol/L (3.5-5.1)
[2023-05-27] MEDS: INSULIN HUMULIN R 100 UNIT/ML 3ML SQ SCH ×4 (05:07→21:12)
[2023-05-27] MEDS: ACETYLCYSTEINE 10% 100MG/ML 4ML VIAL IH SCH ×4 (06:37→23:06)
[2023-05-27] MEDS: IPRATROPIUM 0.5 MG/2.5 ML INH IH SCH ×4 (06:37→23:06)
[2023-05-27] MEDS: ZOSYN 3.375GM +NS 50ML IV SCH ×3 (06:38→21:54)
[2023-05-27] MEDS: POTASSIUM CHLORIDE 10% ELIXIR 20 MEQ/15 ML UDCUP PO PRN ×2 (06:38→11:55)
[2023-05-27] MEDS: BUDESONIDE 0.5 MG/2 ML INH IH SCH ×2 (06:40→18:19)
[2023-05-27] MEDS: AMLODIPINE 5 MG TAB PO SCH (08:22)
[2023-05-27] MEDS: GABAPENTIN 300 MG CAPSULE PO SCH ×3 (08:23→21:10)
[2023-05-27] MEDS: PAROXETINE HCL 20 MG TABLET PO SCH (08:24)
[2023-05-27] MEDS: DIVALPROEX SODIUM 250 MG TABLET.DR PO SCH (08:24)
[2023-05-27] MEDS: THIAMINE HCL 100 MG TABLET PO SCH (08:24)
[2023-05-27] MEDS: PANTOPRAZOLE 40 MG/VIAL IVP SCH (08:25)
[2023-05-27] MEDS: BACLOFEN 10 MG TABLET PO SCH ×3 (08:25→21:00)
[2023-05-27] MEDS: ENOXAPARIN SODIUM 40 MG/0.4 ML SYRINGE SQ SCH (08:27)
[2023-05-27] MEDS: FLUCONAZOLE 400 MG/NS 200 ML 200 ML IV SCH (08:28)
[2023-05-27] MEDS: POLYETHYLENE GLYCOL 3350 17 GM POWD.PACK PO SCH ×2 (08:29→21:10)
[2023-05-27] MEDS: NOREPINEPHRIN 4MG/NS 250ML 250 ML IV SCH (08:29)
[2023-05-27] MEDS: DOCUSATE SODIUM 100 MG CAP PO SCH ×2 (08:29→21:10)
[2023-05-27] MEDS: INSULIN GLARGINE 100 UNITS/ML 10 ML VIAL SQ SCH ×2 (09:36→21:12)
[2023-05-27] MEDS: LEVOFLOXACIN 500 MG/D5W 100 ML 100 ML IV SCH (11:56)
[2023-05-27] MEDS ORDERED: AMIODARONE 150MG VIAL IV STA (14:04)
[2023-05-27] MEDS ORDERED: METOPROLOL TARTRATE 1 MG/ML 5ML VIAL IV ONE (14:30)
[2023-05-27] MEDS ORDERED: AMIODARONE 150MG VIAL 150 MG in DEXTROSE 5%-WATER 100 ML IV SCH (14:30)
[2023-05-27] MEDS: QUETIAPINE FUMARATE 100 MG TAB PO SCH (21:10)
[2023-05-28] VITALS (72 sets, daily range): BP systolic 81–148; BP diastolic 44–108; PULSE 60–85; RESP 14–52; O2SAT 95–99
[2023-05-28] MEDS: PROPOFOL 1000 MG/100 ML 100 ML IV PRN ×6 (01:38→21:07)
[2023-05-28] MEDS: DEXMEDETOMIDINE 400MCG/NS100ML IV SCH ×5 (02:14→20:08)
[2023-05-28] MEDS: FUROSEMIDE 40MG VIAL IV SCH ×3 (03:59→21:11)
[2023-05-28] MEDS: ZOSYN 3.375GM +NS 50ML IV SCH ×3 (05:00→21:02)
[2023-05-28] MEDS: VANCOMYCIN 1G/250ML KIT 250 ML IV SCH ×3 (05:00→21:03)
[2023-05-28] MEDS: INSULIN HUMULIN R 100 UNIT/ML 3ML SQ SCH ×6 (05:31→21:09)
[2023-05-28 05:57] LABS: BASOPHILS # (AUTO) 0.07 K/uL (0.00-0.20); BASOPHILS % (AUTO) 0.8 % (0.0-5.0); EOSINOPHILS # (AUTO) 0.16 K/uL (0.00-0.70); EOSINOPHILS % (AUTO) 1.9 % (0.0-8.0); HEMATOCRIT 36.4 % (42-54); IMMATURE GRANULOCYTE ABSOLUTE 0.15 K/uL (0-1); LYMPHOCYTES # (AUTO) 1.4 K/uL (1.0-4.8); LYMPHOCYTES % (AUTO) 15.7 % (21.0-51.0); MEAN CORPUSCULAR HEMOGLOBIN 27.9 pg (27.0-33.0); MEAN CORPUSCULAR HGB CONC 31.9 g/dL (32.0-36.0); MEAN CORPUSCULAR VOLUME 87.5 fL (79-99); MONOCYTES # (AUTO) 0.9 K/uL (0.1-1.0); MONOCYTES % (AUTO) 10.6 % (3.0-13.0); NEUTROPHILS % (AUTO) 69.3 % (40.0-77.0); PLATELET COUNT (AUTO) 308 K/uL (130-400); RED BLOOD CELL COUNT(AUTO) 4.16 MIL/uL (4.50-6.20); RED CELL DISTRIBUTION WIDTH 13.5 % (11.0-15.5); WHITE BLOOD COUNT (AUTO) 8.6 K/uL (4.8-10.8)
[2023-05-28] MEDS: BUDESONIDE 0.5 MG/2 ML INH IH SCH ×2 (06:00→18:46)
[2023-05-28 06:15] LABS: CREATININE 1.1 mg/dL (0.5-1.5); POTASSIUM 3.6 mmol/L (3.5-5.1)
[2023-05-28] MEDS ORDERED: BUDESONIDE 0.25 MG/2 ML INH IH ONE (06:48)
[2023-05-28] MEDS: ACETYLCYSTEINE 10% 100MG/ML 4ML VIAL IH SCH ×4 (07:20→23:02)
[2023-05-28] MEDS: IPRATROPIUM 0.5 MG/2.5 ML INH IH SCH ×4 (07:20→23:02)
[2023-05-28] MEDS: DOCUSATE SODIUM 100 MG CAP PO SCH ×2 (09:00→21:02)
[2023-05-28] MEDS: THIAMINE HCL 100 MG TABLET PO SCH (09:07)
[2023-05-28] MEDS: AMLODIPINE 5 MG TAB PO SCH (09:08)
[2023-05-28] MEDS: BACLOFEN 10 MG TABLET PO SCH ×3 (09:08→21:00)
[2023-05-28] MEDS: PAROXETINE HCL 20 MG TABLET PO SCH (09:08)
[2023-05-28] MEDS: GABAPENTIN 300 MG CAPSULE PO SCH ×3 (09:08→21:02)
[2023-05-28] MEDS: PANTOPRAZOLE 40 MG/VIAL IVP SCH (09:08)
[2023-05-28] MEDS: POTASSIUM CHLORIDE 10% ELIXIR 20 MEQ/15 ML UDCUP PO PRN (09:09)
[2023-05-28] MEDS: DIVALPROEX SODIUM 250 MG TABLET.DR PO SCH (09:10)
[2023-05-28] MEDS: POLYETHYLENE GLYCOL 3350 17 GM POWD.PACK PO SCH ×2 (09:10→21:02)
[2023-05-28] MEDS: ENOXAPARIN SODIUM 40 MG/0.4 ML SYRINGE SQ SCH (09:10)
[2023-05-28] MEDS: FLUCONAZOLE 400 MG/NS 200 ML 200 ML IV SCH (09:15)
[2023-05-28] MEDS: INSULIN GLARGINE 100 UNITS/ML 10 ML VIAL SQ SCH ×2 (09:30→21:08)
[2023-05-28] MEDS: QUETIAPINE FUMARATE 100 MG TAB PO SCH (21:02)
[2023-05-29] VITALS (105 sets, daily range): BP systolic 87–151; BP diastolic 42–85; PULSE 63–85; RESP 14–21; O2SAT 97–99
[2023-05-29] MEDS: DEXMEDETOMIDINE 400MCG/NS100ML IV SCH ×8 (00:08→23:37)
[2023-05-29] MEDS: PROPOFOL 1000 MG/100 ML 100 ML IV PRN ×7 (00:09→22:48)
[2023-05-29] MEDS: INSULIN HUMULIN R 100 UNIT/ML 3ML SQ SCH ×8 (00:12→20:20)
[2023-05-29] MEDS: FUROSEMIDE 40MG VIAL IV SCH ×3 (03:33→22:48)
[2023-05-29 04:41] LABS: BASOPHILS # (AUTO) 0.03 K/uL (0.00-0.20); BASOPHILS % (AUTO) 0.4 % (0.0-5.0); EOSINOPHILS # (AUTO) 0.24 K/uL (0.00-0.70); EOSINOPHILS % (AUTO) 3.5 % (0.0-8.0); HEMATOCRIT 37.3 % (42-54); IMMATURE GRANULOCYTE ABSOLUTE 0.11 K/uL (0-1); LYMPHOCYTES # (AUTO) 1.3 K/uL (1.0-4.8); LYMPHOCYTES % (AUTO) 18.7 % (21.0-51.0); MEAN CORPUSCULAR HEMOGLOBIN 27.6 pg (27.0-33.0); MEAN CORPUSCULAR HGB CONC 31.4 g/dL (32.0-36.0); MONOCYTES # (AUTO) 0.6 K/uL (0.1-1.0); MONOCYTES % (AUTO) 8.5 % (3.0-13.0); NEUTROPHILS # (AUTO) 4.6 K/uL (1.8-7.7); NEUTROPHILS % (AUTO) 67.3 % (40.0-77.0); PLATELET COUNT (AUTO) 241 K/uL (130-400); RED BLOOD CELL COUNT(AUTO) 4.24 MIL/uL (4.50-6.20); RED CELL DISTRIBUTION WIDTH 13.7 % (11.0-15.5); WHITE BLOOD COUNT (AUTO) 6.9 K/uL (4.8-10.8)
[2023-05-29 04:48] LABS: CREATININE 1.1 mg/dL (0.5-1.5); POTASSIUM 3.4 mmol/L (3.5-5.1)
[2023-05-29] MEDS: VANCOMYCIN 1G/250ML KIT 250 ML IV SCH ×3 (05:27→19:56)
[2023-05-29] MEDS: ZOSYN 3.375GM +NS 50ML IV SCH ×3 (05:27→20:45)
[2023-05-29] MEDS: POTASSIUM CHLORIDE 10% ELIXIR 20 MEQ/15 ML UDCUP PO PRN ×2 (05:41→08:59)
[2023-05-29] MEDS: BUDESONIDE 0.5 MG/2 ML INH IH SCH ×2 (06:30→18:35)
[2023-05-29] MEDS: IPRATROPIUM 0.5 MG/2.5 ML INH IH SCH ×4 (06:30→23:17)
[2023-05-29] MEDS: ACETYLCYSTEINE 10% 100MG/ML 4ML VIAL IH SCH ×2 (06:31→11:21)
[2023-05-29] MEDS: FLUCONAZOLE 400 MG/NS 200 ML 200 ML IV SCH (08:57)
[2023-05-29] MEDS: LACTULOSE 20 GM/30 ML UDCUP PO PRN (08:59)
[2023-05-29] MEDS: PANTOPRAZOLE 40 MG/VIAL IVP SCH (08:59)
[2023-05-29] MEDS: DOCUSATE SODIUM 100 MG CAP PO SCH ×2 (08:59→19:57)
[2023-05-29] MEDS: POLYETHYLENE GLYCOL 3350 17 GM POWD.PACK PO SCH ×2 (08:59→19:57)
[2023-05-29] MEDS: THIAMINE HCL 100 MG TABLET PO SCH (08:59)
[2023-05-29] MEDS: ENOXAPARIN SODIUM 40 MG/0.4 ML SYRINGE SQ SCH (08:59)
[2023-05-29] MEDS: BACLOFEN 10 MG TABLET PO SCH (09:00)
[2023-05-29] MEDS: PAROXETINE HCL 20 MG TABLET PO SCH (09:00)
[2023-05-29] MEDS: DIVALPROEX SODIUM 250 MG TABLET.DR PO SCH (09:00)
[2023-05-29] MEDS: GABAPENTIN 300 MG CAPSULE PO SCH ×3 (09:00→19:57)
[2023-05-29] MEDS: AMLODIPINE 5 MG TAB PO SCH (09:00)
[2023-05-29] MEDS: INSULIN GLARGINE 100 UNITS/ML 10 ML VIAL SQ SCH ×2 (09:05→19:58)
[2023-05-29] MEDS ORDERED: ALTEPLASE 2MG VIAL 2 MG/VIAL VIAL IVCATH ONE (11:30)
[2023-05-29 14:13] LABS: POTASSIUM 3.7 mmol/L (3.5-5.1)
[2023-05-29] MEDS ORDERED: FENTANYL CITRATE PF 50 MCG/1 ML 2ML VIAL ONE (14:16)
[2023-05-29] MEDS ORDERED: FENTANYL CITRATE PF 50 MCG/1 ML 2ML VIAL IVP ONE (14:30)
[2023-05-29] MEDS: KCL 20 MEQ ERTAB PO PRN (18:09)
[2023-05-29] MEDS: QUETIAPINE FUMARATE 100 MG TAB PO SCH (19:57)
[2023-05-30] VITALS (69 sets, daily range): BP systolic 95–153; BP diastolic 51–92; PULSE 61–72; RESP 14–23; O2SAT 97–100
[2023-05-30] MEDS: PROPOFOL 1000 MG/100 ML 100 ML IV PRN ×6 (02:07→23:51)
[2023-05-30] MEDS: DEXMEDETOMIDINE 400MCG/NS100ML IV SCH ×6 (03:29→22:37)
[2023-05-30] MEDS: VANCOMYCIN 1G/250ML KIT 250 ML IV SCH ×3 (04:10→22:36)
[2023-05-30] MEDS: ZOSYN 3.375GM +NS 50ML IV SCH ×3 (04:54→23:16)
[2023-05-30 05:01] LABS: BASOPHILS # (AUTO) 0.05 K/uL (0.00-0.20); BASOPHILS % (AUTO) 0.8 % (0.0-5.0); EOSINOPHILS # (AUTO) 0.23 K/uL (0.00-0.70); EOSINOPHILS % (AUTO) 3.9 % (0.0-8.0); HEMATOCRIT 38.2 % (42-54); IMMATURE GRANULOCYTE ABSOLUTE 0.09 K/uL (0-1); LYMPHOCYTES # (AUTO) 1.2 K/uL (1.0-4.8); MEAN CORPUSCULAR HEMOGLOBIN 27.9 pg (27.0-33.0); MEAN CORPUSCULAR HGB CONC 31.2 g/dL (32.0-36.0); MEAN CORPUSCULAR VOLUME 89.5 fL (79-99); MONOCYTES # (AUTO) 0.4 K/uL (0.1-1.0); MONOCYTES % (AUTO) 7.4 % (3.0-13.0); NEUTROPHILS % (AUTO) 66.4 % (40.0-77.0); PLATELET COUNT (AUTO) 371 K/uL (130-400); RED BLOOD CELL COUNT(AUTO) 4.27 MIL/uL (4.50-6.20); RED CELL DISTRIBUTION WIDTH 13.3 % (11.0-15.5)
[2023-05-30 05:33] LABS: POTASSIUM 3.7 mmol/L (3.5-5.1)
[2023-05-30] MEDS: INSULIN HUMULIN R 100 UNIT/ML 3ML SQ SCH ×8 (06:16→21:00)
[2023-05-30] MEDS: BUDESONIDE 0.5 MG/2 ML INH IH SCH ×2 (06:34→19:03)
[2023-05-30] MEDS: IPRATROPIUM 0.5 MG/2.5 ML INH IH SCH ×4 (06:34→23:30)
[2023-05-30] MEDS: POTASSIUM CHLORIDE 20MEQ/100ML 100 ML IV PRN (07:05)
[2023-05-30] MEDS: PANTOPRAZOLE 40 MG TAB DR PO SCH (08:34)
[2023-05-30] MEDS: THIAMINE HCL 100 MG TABLET PO SCH (08:34)
[2023-05-30] MEDS: DOCUSATE SODIUM 100 MG CAP PO SCH ×2 (08:34→20:17)
[2023-05-30] MEDS: POLYETHYLENE GLYCOL 3350 17 GM POWD.PACK PO SCH ×2 (08:34→20:17)
[2023-05-30] MEDS: GABAPENTIN 300 MG CAPSULE PO SCH ×3 (08:34→20:18)
[2023-05-30] MEDS: PAROXETINE HCL 20 MG TABLET PO SCH (08:35)
[2023-05-30] MEDS: DIVALPROEX SODIUM 250 MG TABLET.DR PO SCH (08:35)
[2023-05-30] MEDS: INSULIN GLARGINE 100 UNITS/ML 10 ML VIAL SQ SCH ×2 (08:37→21:00)
[2023-05-30] MEDS: ENOXAPARIN SODIUM 40 MG/0.4 ML SYRINGE SQ SCH (08:38)
[2023-05-30] MEDS: FLUCONAZOLE 400 MG/NS 200 ML 200 ML IV SCH (08:38)
[2023-05-30] MEDS: AMLODIPINE 5 MG TAB PO SCH (08:39)
[2023-05-30] MEDS: ARTIFICIAL TEARS 3.5 GM OINTMENT OS SCH (11:03)
[2023-05-30] MEDS: ALPRAZOLAM 1 MG TAB PO SCH ×2 (11:03→20:18)
[2023-05-30] MEDS: FUROSEMIDE 40MG VIAL IV SCH ×2 (11:04→23:16)
[2023-05-30] MEDS: CHLORHEXIDINE GLUCONATE 15 ML MOUTHWASH MM SCH ×3 (11:25→23:32)
[2023-05-30 14:23] LABS: APPEARANCE BODY FLUID TURBID (CLEAR); COLOR,BODY FLUID RED (LT YELLOW); SPECIMENTYPE,BODY FLUID PLEURAL; TOTAL VOLUME,BODY FLUID 40 mL
[2023-05-30 14:27] LABS: BODY FLUID RBC 132484 /cu. mm.; BODY FLUID WBC 977 /cu. mm.
[2023-05-30 14:37] LABS: GLUCOSE PLEURAL FLUID 167; PROTEIN PLEURAL FLUID 5.1 mg/dL
[2023-05-30 14:59] LABS: BF LYMPHOCYTE 7 %; BF MONOCYTE 5 %; BF TOTAL CELLS COUNTED 100
[2023-05-30] MEDS ORDERED: ALTEPLASE 2MG VIAL 2 MG/VIAL VIAL IVCATH ONE (16:30)
[2023-05-30 18:46] LABS: MAGNESIUM 1.9 mg/dL (1.80-2.40); POTASSIUM 3.6 mmol/L (3.5-5.1)
[2023-05-30] MEDS: MAGNESIUM 2GM PREMIX 50ML 50 ML IV PRN (19:22)
[2023-05-30] MEDS: POTASSIUM CHLORIDE 10% ELIXIR 20 MEQ/15 ML UDCUP PO PRN (19:23)
[2023-05-30] MEDS: QUETIAPINE FUMARATE 100 MG TAB PO SCH (20:17)
[2023-05-31] VITALS (96 sets, daily range): BP systolic 101–148; BP diastolic 41–96; PULSE 57–75; RESP 14–22; O2SAT 93–98
[2023-05-31] MEDS: DEXMEDETOMIDINE 400MCG/NS100ML IV SCH ×7 (01:35→20:50)
[2023-05-31] MEDS: PROPOFOL 1000 MG/100 ML 100 ML IV PRN ×7 (02:44→22:33)
[2023-05-31] MEDS: CHLORHEXIDINE GLUCONATE 15 ML MOUTHWASH MM SCH ×4 (05:20→22:35)
[2023-05-31] MEDS: VANCOMYCIN 1G/250ML KIT 250 ML IV SCH ×3 (05:42→21:06)
[2023-05-31] MEDS: INSULIN HUMULIN R 100 UNIT/ML 3ML SQ SCH ×8 (05:46→20:54)
[2023-05-31] MEDS: ZOSYN 3.375GM +NS 50ML IV SCH ×3 (05:46→20:44)
[2023-05-31 06:12] LABS: HEMATOCRIT 37.2 % (42-54); MEAN CORPUSCULAR HGB CONC 31.5 g/dL (32.0-36.0); RED BLOOD CELL COUNT(AUTO) 4.18 MIL/uL (4.50-6.20); RED CELL DISTRIBUTION WIDTH 13.2 % (11.0-15.5); WHITE BLOOD COUNT (AUTO) 5.8 K/uL (4.8-10.8)
[2023-05-31 06:18] LABS: CREATININE 0.9 mg/dL (0.5-1.5); MAGNESIUM 2.2 mg/dL (1.80-2.40); POTASSIUM 4.3 mmol/L (3.5-5.1)
[2023-05-31] MEDS: BUDESONIDE 0.5 MG/2 ML INH IH SCH ×2 (06:24→18:53)
[2023-05-31] MEDS: IPRATROPIUM 0.5 MG/2.5 ML INH IH SCH ×4 (06:24→23:38)
[2023-05-31] MEDS: AMLODIPINE 5 MG TAB PO SCH (07:49)
[2023-05-31] MEDS: FLUCONAZOLE 400 MG/NS 200 ML 200 ML IV SCH (07:58)
[2023-05-31] MEDS: DOCUSATE SODIUM 100 MG CAP PO SCH ×2 (07:58→20:44)
[2023-05-31] MEDS: POLYETHYLENE GLYCOL 3350 17 GM POWD.PACK PO SCH ×2 (07:58→20:44)
[2023-05-31] MEDS: DIVALPROEX SODIUM 250 MG TABLET.DR PO SCH (07:58)
[2023-05-31] MEDS: ALPRAZOLAM 1 MG TAB PO SCH ×2 (08:02→20:44)
[2023-05-31] MEDS: GABAPENTIN 300 MG CAPSULE PO SCH ×3 (08:02→20:45)
[2023-05-31] MEDS: PANTOPRAZOLE 40 MG TAB DR PO SCH (08:03)
[2023-05-31] MEDS: THIAMINE HCL 100 MG TABLET PO SCH (08:03)
[2023-05-31] MEDS: PAROXETINE HCL 20 MG TABLET PO SCH (08:04)
[2023-05-31] MEDS: ENOXAPARIN SODIUM 40 MG/0.4 ML SYRINGE SQ SCH (08:06)
[2023-05-31] MEDS: LACTULOSE 20 GM/30 ML UDCUP PO PRN (08:17)
[2023-05-31] MEDS: INSULIN GLARGINE 100 UNITS/ML 10 ML VIAL SQ SCH ×2 (09:00→20:46)
[2023-05-31] MEDS: LACTULOSE 20 GM/30 ML UDCUP PO SCH ×3 (10:30→22:34)
[2023-05-31] MEDS: FUROSEMIDE 40MG VIAL IV SCH ×2 (11:01→22:34)
[2023-05-31] MEDS ORDERED: PHARMACY COMMUNICATION MISC SCH (11:30)
[2023-05-31] MEDS ORDERED: [UNRECOGNIZED DRUG - REMARK] MISC SCH (16:30)
[2023-05-31 17:27] LABS: MAGNESIUM 1.9 mg/dL (1.80-2.40); POTASSIUM 4.1 mmol/L (3.5-5.1)
[2023-05-31] MEDS: MAGNESIUM 2GM PREMIX 50ML 50 ML IV PRN (17:50)
[2023-05-31] MEDS: CHLORDIAZEPOXIDE HCL 25 MG CAP PO SCH (17:50)
[2023-05-31 20:00] LABS: ABG BASE EXCESS 3.5 mmol/L (-2.0-3.0); ABG HCO3 28.3 mmol/L (21.0-28.0); ABG OXYGEN SATURATION 94.4 % (95.0-99.0); ABG PCO2 44 mmHg (35-48); CARBON MONOXIDE 0.6; HHb 5.6; VENT MODE, BG AC (ROOM AIR)
[2023-05-31] MEDS: ARTIFICIAL TEARS 3.5 GM OINTMENT OS SCH (20:44)
[2023-05-31] MEDS: NYSTATIN-TRIAMCINOLONE CREAM 15 GM TP SCH (20:45)
[2023-05-31] MEDS: QUETIAPINE FUMARATE 100 MG TAB PO SCH (20:45)
[2023-06-01] VITALS (60 sets, daily range): BP systolic 94–137; BP diastolic 42–84; PULSE 57–68; RESP 14–26; O2SAT 95–97
[2023-06-01] MEDS: DEXMEDETOMIDINE 400MCG/NS100ML IV SCH ×6 (01:15→21:39)
[2023-06-01] MEDS: INSULIN HUMULIN R 100 UNIT/ML 3ML SQ SCH ×9 (01:19→23:42)
[2023-06-01] MEDS: PROPOFOL 1000 MG/100 ML 100 ML IV PRN ×6 (01:55→23:40)
[2023-06-01] MEDS: CHLORHEXIDINE GLUCONATE 15 ML MOUTHWASH MM SCH ×4 (04:17→23:04)
[2023-06-01] MEDS: LACTULOSE 20 GM/30 ML UDCUP PO SCH ×4 (04:17→21:20)
[2023-06-01] MEDS: ZOSYN 3.375GM +NS 50ML IV SCH ×3 (04:18→20:33)
[2023-06-01 04:40] LABS: BASOPHILS % (AUTO) 1.8 % (0.0-5.0); EOSINOPHILS # (AUTO) 0.28 K/uL (0.00-0.70); HEMATOCRIT 38.7 % (42-54); IMMATURE GRANULOCYTE ABSOLUTE 0.09 K/uL (0-1); LYMPHOCYTES # (AUTO) 1.3 K/uL (1.0-4.8); LYMPHOCYTES % (AUTO) 23.9 % (21.0-51.0); MEAN CORPUSCULAR HEMOGLOBIN 27.8 pg (27.0-33.0); MEAN CORPUSCULAR HGB CONC 31.8 g/dL (32.0-36.0); MEAN CORPUSCULAR VOLUME 87.6 fL (79-99); MONOCYTES # (AUTO) 0.5 K/uL (0.1-1.0); NEUTROPHILS # (AUTO) 3.3 K/uL (1.8-7.7); NEUTROPHILS % (AUTO) 58.7 % (40.0-77.0); PLATELET COUNT (AUTO) 368 K/uL (130-400); RED BLOOD CELL COUNT(AUTO) 4.42 MIL/uL (4.50-6.20); RED CELL DISTRIBUTION WIDTH 13.2 % (11.0-15.5); WHITE BLOOD COUNT (AUTO) 5.6 K/uL (4.8-10.8)
[2023-06-01 05:01] LABS: ALBUMIN 1.9 g/dL (3.5-5.0); BILIRUBIN,TOTAL 0.5 mg/dL (0.2-1.0); MAGNESIUM 2.2 mg/dL (1.80-2.40); TOTAL PROTEIN, SERUM 7.4 g/dL (6.0-8.3)
[2023-06-01] MEDS ORDERED: 0.9% NACL 250ML 250 ML IV SCH (06:00)
[2023-06-01] MEDS: CHLORDIAZEPOXIDE HCL 25 MG CAP PO SCH ×2 (06:25→17:04)
[2023-06-01] MEDS: VANCOMYCIN 750MG VIAL IVPB SCH ×3 (06:25→21:20)
[2023-06-01] MEDS: BUDESONIDE 0.5 MG/2 ML INH IH SCH ×2 (06:49→19:02)
[2023-06-01] MEDS: IPRATROPIUM 0.5 MG/2.5 ML INH IH SCH ×4 (06:49→19:02)
[2023-06-01] MEDS: ALPRAZOLAM 1 MG TAB PO SCH ×2 (09:11→20:33)
[2023-06-01] MEDS: GABAPENTIN 300 MG CAPSULE PO SCH ×3 (09:12→20:34)
[2023-06-01] MEDS: FLUCONAZOLE 400 MG/NS 200 ML 200 ML IV SCH (09:12)
[2023-06-01] MEDS: PAROXETINE HCL 20 MG TABLET PO SCH (09:12)
[2023-06-01] MEDS: THIAMINE HCL 100 MG TABLET PO SCH (09:12)
[2023-06-01] MEDS: DOCUSATE SODIUM 100 MG CAP PO SCH ×2 (09:12→20:55)
[2023-06-01] MEDS: POLYETHYLENE GLYCOL 3350 17 GM POWD.PACK PO SCH ×2 (09:12→20:33)
[2023-06-01] MEDS: PANTOPRAZOLE 40 MG TAB DR PO SCH (09:12)
[2023-06-01] MEDS: AMLODIPINE 5 MG TAB PO SCH (09:12)
[2023-06-01] MEDS: DIVALPROEX SODIUM 250 MG TABLET.DR PO SCH (09:12)
[2023-06-01] MEDS: NYSTATIN-TRIAMCINOLONE CREAM 15 GM TP SCH ×2 (09:13→20:35)
[2023-06-01] MEDS: ENOXAPARIN SODIUM 40 MG/0.4 ML SYRINGE SQ SCH (09:14)
[2023-06-01] MEDS ORDERED: LORAZEPAM 2 MG/ML 1 ML VIAL ONE (11:19)
[2023-06-01] MEDS: FUROSEMIDE 40MG VIAL IV SCH ×2 (11:30→23:04)
[2023-06-01] MEDS: CHLORDIAZEPOXIDE HCL 25 MG CAP PO PRN (11:42)
[2023-06-01] MEDS: INSULIN GLARGINE 100 UNITS/ML 10 ML VIAL SQ SCH ×2 (11:50→21:49)
[2023-06-01] MEDS ORDERED: [UNRECOGNIZED DRUG - REMARK] MISC SCH (19:00)
[2023-06-01] MEDS: QUETIAPINE FUMARATE 100 MG TAB PO SCH (20:33)
[2023-06-01] MEDS: ARTIFICIAL TEARS 3.5 GM OINTMENT OS SCH (20:34)
[2023-06-02] VITALS (45 sets, daily range): BP systolic 95–148; BP diastolic 54–90; PULSE 58–69; RESP 14–22; O2SAT 95–98
[2023-06-02] MEDS: IPRATROPIUM 0.5 MG/2.5 ML INH IH SCH ×4 (00:20→19:47)
[2023-06-02] MEDS: DEXMEDETOMIDINE 400MCG/NS100ML IV SCH ×5 (01:20→21:25)
[2023-06-02] MEDS: LACTULOSE 20 GM/30 ML UDCUP PO SCH ×4 (04:43→22:51)
[2023-06-02] MEDS: PROPOFOL 1000 MG/100 ML 100 ML IV PRN ×5 (04:43→23:31)
[2023-06-02] MEDS: CHLORHEXIDINE GLUCONATE 15 ML MOUTHWASH MM SCH ×4 (05:08→22:51)
[2023-06-02] MEDS: ZOSYN 3.375GM +NS 50ML IV SCH ×3 (05:08→19:58)
[2023-06-02 05:13] LABS: BASOPHILS # (AUTO) 0.05 K/uL (0.00-0.20); EOSINOPHILS # (AUTO) 0.21 K/uL (0.00-0.70); EOSINOPHILS % (AUTO) 4.3 % (0.0-8.0); HEMATOCRIT 37.8 % (42-54); IMMATURE GRANULOCYTE ABSOLUTE 0.07 K/uL (0-1); LYMPHOCYTES % (AUTO) 20.6 % (21.0-51.0); MEAN CORPUSCULAR HEMOGLOBIN 27.4 pg (27.0-33.0); MEAN CORPUSCULAR VOLUME 85.5 fL (79-99); MONOCYTES # (AUTO) 0.3 K/uL (0.1-1.0); MONOCYTES % (AUTO) 6.5 % (3.0-13.0); NEUTROPHILS # (AUTO) 3.2 K/uL (1.8-7.7); NEUTROPHILS % (AUTO) 66.2 % (40.0-77.0); PLATELET COUNT (AUTO) 346 K/uL (130-400); RED BLOOD CELL COUNT(AUTO) 4.42 MIL/uL (4.50-6.20); RED CELL DISTRIBUTION WIDTH 13.1 % (11.0-15.5); WHITE BLOOD COUNT (AUTO) 4.9 K/uL (4.8-10.8)
[2023-06-02] MEDS: INSULIN HUMULIN R 100 UNIT/ML 3ML SQ SCH ×7 (05:18→20:10)
[2023-06-02] MEDS: CHLORDIAZEPOXIDE HCL 25 MG CAP PO SCH ×2 (05:18→17:16)
[2023-06-02 05:28] LABS: ALBUMIN 1.9 g/dL (3.5-5.0); BILIRUBIN,TOTAL 0.4 mg/dL (0.2-1.0); MAGNESIUM 1.8 mg/dL (1.80-2.40); PHOSPHORUS 3.9 mg/dL (2.5-4.9); POTASSIUM 3.8 mmol/L (3.5-5.1); TOTAL PROTEIN, SERUM 7.4 g/dL (6.0-8.3)
[2023-06-02] MEDS: VANCOMYCIN 750MG VIAL IVPB SCH ×3 (06:19→21:20)
[2023-06-02] MEDS: MAGNESIUM 2GM PREMIX 50ML 50 ML IV PRN (06:21)
[2023-06-02] MEDS: BUDESONIDE 0.5 MG/2 ML INH IH SCH ×2 (06:38→19:47)
[2023-06-02] MEDS: POTASSIUM CHLORIDE 10% ELIXIR 20 MEQ/15 ML UDCUP PO PRN ×2 (08:24→12:52)
[2023-06-02] MEDS: POLYETHYLENE GLYCOL 3350 17 GM POWD.PACK PO SCH ×2 (08:24→19:59)
[2023-06-02] MEDS: FLUCONAZOLE 400 MG/NS 200 ML 200 ML IV SCH (08:24)
[2023-06-02] MEDS: ALPRAZOLAM 1 MG TAB PO SCH ×2 (08:25→20:01)
[2023-06-02] MEDS: AMLODIPINE 5 MG TAB PO SCH (08:25)
[2023-06-02] MEDS: PANTOPRAZOLE 40 MG TAB DR PO SCH (08:25)
[2023-06-02] MEDS: ENOXAPARIN SODIUM 40 MG/0.4 ML SYRINGE SQ SCH (08:25)
[2023-06-02] MEDS: THIAMINE HCL 100 MG TABLET PO SCH (08:25)
[2023-06-02] MEDS: DOCUSATE SODIUM 100 MG CAP PO SCH ×2 (08:25→20:10)
[2023-06-02] MEDS: DIVALPROEX SODIUM 250 MG TABLET.DR PO SCH (08:25)
[2023-06-02] MEDS: GABAPENTIN 300 MG CAPSULE PO SCH ×3 (08:28→19:59)
[2023-06-02] MEDS: PAROXETINE HCL 20 MG TABLET PO SCH (08:28)
[2023-06-02 08:42] LABS: ABG BASE EXCESS 2.5 mmol/L (-2.0-3.0); ABG HCO3 27.3 mmol/L (21.0-28.0); ABG OXYGEN SATURATION 95.1 % (95.0-99.0); ABG PCO2 43 mmHg (35-48); ABG PH 7.424 (7.35-7.450); DEVICE COMMENT JOSE RN; PO2, ARTERIAL BG 73.9 mmHg (83.0-108.0); VENT MODE, BG AC (ROOM AIR)
[2023-06-02] MEDS: CHLORDIAZEPOXIDE HCL 25 MG CAP PO PRN ×2 (08:51→12:53)
[2023-06-02] MEDS: NYSTATIN-TRIAMCINOLONE CREAM 15 GM TP SCH ×2 (09:37→20:00)
[2023-06-02] MEDS: INSULIN GLARGINE 100 UNITS/ML 10 ML VIAL SQ SCH ×2 (10:11→20:14)
[2023-06-02] MEDS: FUROSEMIDE 40MG VIAL IV SCH ×2 (11:17→22:51)
[2023-06-02] MEDS: QUETIAPINE FUMARATE 100 MG TAB PO SCH (19:59)
[2023-06-02] MEDS: ARTIFICIAL TEARS 3.5 GM OINTMENT OS SCH (20:00)
[2023-06-03] VITALS (99 sets, daily range): BP systolic 103–155; BP diastolic 24–102; PULSE 57–84; RESP 10–194; O2SAT 95–99
[2023-06-03] MEDS: INSULIN HUMULIN R 100 UNIT/ML 3ML SQ SCH ×9 (00:04→23:08)
[2023-06-03] MEDS: DEXMEDETOMIDINE 400MCG/NS100ML IV SCH ×6 (00:53→19:09)
[2023-06-03] MEDS: IPRATROPIUM 0.5 MG/2.5 ML INH IH SCH ×5 (01:48→23:45)
[2023-06-03] MEDS: PROPOFOL 1000 MG/100 ML 100 ML IV PRN ×4 (03:34→21:36)
[2023-06-03 04:13] LABS: BASOPHILS # (AUTO) 0.05 K/uL (0.00-0.20); BASOPHILS % (AUTO) 1.1 % (0.0-5.0); EOSINOPHILS # (AUTO) 0.17 K/uL (0.00-0.70); EOSINOPHILS % (AUTO) 3.7 % (0.0-8.0); HEMATOCRIT 38.3 % (42-54); IMMATURE GRANULOCYTE ABSOLUTE 0.06 K/uL (0-1); LYMPHOCYTES # (AUTO) 0.9 K/uL (1.0-4.8); LYMPHOCYTES % (AUTO) 19.7 % (21.0-51.0); MEAN CORPUSCULAR HEMOGLOBIN 27.9 pg (27.0-33.0); MEAN CORPUSCULAR HGB CONC 32.4 g/dL (32.0-36.0); MEAN CORPUSCULAR VOLUME 86.3 fL (79-99); MONOCYTES # (AUTO) 0.4 K/uL (0.1-1.0); MONOCYTES % (AUTO) 8.7 % (3.0-13.0); NEUTROPHILS % (AUTO) 65.5 % (40.0-77.0); PLATELET COUNT (AUTO) 321 K/uL (130-400); RED BLOOD CELL COUNT(AUTO) 4.44 MIL/uL (4.50-6.20); RED CELL DISTRIBUTION WIDTH 13.1 % (11.0-15.5); WHITE BLOOD COUNT (AUTO) 4.6 K/uL (4.8-10.8)
[2023-06-03 04:34] LABS: BILIRUBIN,TOTAL 0.3 mg/dL (0.2-1.0); MAGNESIUM 1.8 mg/dL (1.80-2.40); PHOSPHORUS 3.3 mg/dL (2.5-4.9); POTASSIUM 3.6 mmol/L (3.5-5.1); TOTAL PROTEIN, SERUM 7.3 g/dL (6.0-8.3)
[2023-06-03] MEDS: CHLORHEXIDINE GLUCONATE 15 ML MOUTHWASH MM SCH ×4 (05:17→23:03)
[2023-06-03] MEDS: LACTULOSE 20 GM/30 ML UDCUP PO SCH ×4 (05:17→22:30)
[2023-06-03] MEDS: CHLORDIAZEPOXIDE HCL 25 MG CAP PO SCH ×2 (05:18→17:38)
[2023-06-03] MEDS: ZOSYN 3.375GM +NS 50ML IV SCH ×3 (05:23→21:11)
[2023-06-03] MEDS: VANCOMYCIN 750MG VIAL IVPB SCH ×3 (05:53→22:55)
[2023-06-03] MEDS ORDERED: BUDESONIDE 0.25 MG/2 ML INH IH ONE (06:00)
[2023-06-03] MEDS: BUDESONIDE 0.5 MG/2 ML INH IH SCH ×2 (06:00→19:25)
[2023-06-03] MEDS: DIVALPROEX SODIUM 250 MG TABLET.DR PO SCH (09:00)
[2023-06-03] MEDS: DOCUSATE SODIUM 100 MG CAP PO SCH ×2 (09:00→21:11)
[2023-06-03] MEDS: POLYETHYLENE GLYCOL 3350 17 GM POWD.PACK PO SCH ×2 (09:00→21:08)
[2023-06-03] MEDS: ENOXAPARIN SODIUM 40 MG/0.4 ML SYRINGE SQ SCH (09:49)
[2023-06-03] MEDS: PANTOPRAZOLE 40 MG TAB DR PO SCH (09:50)
[2023-06-03] MEDS: THIAMINE HCL 100 MG TABLET PO SCH (09:50)
[2023-06-03] MEDS: GABAPENTIN 300 MG CAPSULE PO SCH ×3 (09:50→21:10)
[2023-06-03] MEDS: ALPRAZOLAM 1 MG TAB PO SCH ×2 (09:50→21:08)
[2023-06-03] MEDS: PAROXETINE HCL 20 MG TABLET PO SCH (09:51)
[2023-06-03] MEDS: AMLODIPINE 5 MG TAB PO SCH (09:51)
[2023-06-03] MEDS: FLUCONAZOLE 400 MG/NS 200 ML 200 ML IV SCH (09:52)
[2023-06-03] MEDS: NYSTATIN-TRIAMCINOLONE CREAM 15 GM TP SCH ×2 (09:52→21:13)
[2023-06-03] MEDS: INSULIN GLARGINE 100 UNITS/ML 10 ML VIAL SQ SCH ×2 (09:58→21:12)
[2023-06-03] MEDS: CHLORDIAZEPOXIDE HCL 25 MG CAP PO PRN ×2 (10:52→14:39)
[2023-06-03 11:30] LABS: ABG BASE EXCESS 1.2 mmol/L (-2.0-3.0); ABG HCO3 25.5 mmol/L (21.0-28.0); ABG OXYGEN SATURATION 92.8 % (95.0-99.0); ABG PCO2 40 mmHg (35-48); ABG PH 7.425 (7.35-7.450); DEVICE COMMENT RR VENT; PO2, ARTERIAL BG 63.6 mmHg (83.0-108.0); VENT MODE, BG CPAP PS10 (ROOM AIR)
[2023-06-03] MEDS: FUROSEMIDE 40MG VIAL IV SCH ×2 (12:21→22:55)
[2023-06-03] MEDS: LORAZEPAM 2 MG/ML 1 ML VIAL IVP PRN ×2 (14:39→14:40)
[2023-06-03] MEDS: QUETIAPINE FUMARATE 100 MG TAB PO SCH (21:10)
[2023-06-03] MEDS: ARTIFICIAL TEARS 3.5 GM OINTMENT OS SCH (21:11)
[2023-06-03] MEDS: POTASSIUM CHLORIDE 10% ELIXIR 20 MEQ/15 ML UDCUP PO PRN (23:03)
[2023-06-04] VITALS (59 sets, daily range): BP systolic 97–139; BP diastolic 52–93; PULSE 54–72; RESP 11–162; O2SAT 96–100
[2023-06-04] MEDS: DEXMEDETOMIDINE 400MCG/NS100ML IV SCH ×3 (01:21→20:49)
[2023-06-04] MEDS: PROPOFOL 1000 MG/100 ML 100 ML IV PRN (01:21)
[2023-06-04] MEDS: POTASSIUM CHLORIDE 10% ELIXIR 20 MEQ/15 ML UDCUP PO PRN ×2 (01:22→06:44)
[2023-06-04] MEDS: LACTULOSE 20 GM/30 ML UDCUP PO SCH ×4 (04:30→22:30)
[2023-06-04] MEDS: ZOSYN 3.375GM +NS 50ML IV SCH ×3 (05:28→20:25)
[2023-06-04] MEDS: CHLORDIAZEPOXIDE HCL 25 MG CAP PO SCH ×2 (05:29→17:49)
[2023-06-04] MEDS: VANCOMYCIN 750MG VIAL IVPB SCH ×3 (05:29→22:08)
[2023-06-04] MEDS: CHLORHEXIDINE GLUCONATE 15 ML MOUTHWASH MM SCH ×3 (05:29→17:49)
[2023-06-04] MEDS: INSULIN HUMULIN R 100 UNIT/ML 3ML SQ SCH ×7 (05:30→19:16)
[2023-06-04 05:32] LABS: BASOPHILS # (AUTO) 0.05 K/uL (0.00-0.20); BASOPHILS % (AUTO) 1.3 % (0.0-5.0); EOSINOPHILS # (AUTO) 0.17 K/uL (0.00-0.70); EOSINOPHILS % (AUTO) 4.3 % (0.0-8.0); HEMATOCRIT 37.2 % (42-54); IMMATURE GRANULOCYTE ABSOLUTE 0.03 K/uL (0-1); LYMPHOCYTES # (AUTO) 0.9 K/uL (1.0-4.8); LYMPHOCYTES % (AUTO) 23.5 % (21.0-51.0); MEAN CORPUSCULAR HEMOGLOBIN 27.9 pg (27.0-33.0); MEAN CORPUSCULAR HGB CONC 32.5 g/dL (32.0-36.0); MEAN CORPUSCULAR VOLUME 85.7 fL (79-99); MONOCYTES # (AUTO) 0.4 K/uL (0.1-1.0); MONOCYTES % (AUTO) 8.8 % (3.0-13.0); NEUTROPHILS # (AUTO) 2.5 K/uL (1.8-7.7); NEUTROPHILS % (AUTO) 61.3 % (40.0-77.0); PLATELET COUNT (AUTO) 310 K/uL (130-400); RED BLOOD CELL COUNT(AUTO) 4.34 MIL/uL (4.50-6.20)
[2023-06-04 06:04] LABS: ALBUMIN 1.9 g/dL (3.5-5.0); BILIRUBIN,TOTAL 0.4 mg/dL (0.2-1.0); CREATININE 0.9 mg/dL (0.5-1.5); MAGNESIUM 1.7 mg/dL (1.80-2.40); PHOSPHORUS 3.8 mg/dL (2.5-4.9); POTASSIUM 3.7 mmol/L (3.5-5.1); TOTAL PROTEIN, SERUM 7.1 g/dL (6.0-8.3)
[2023-06-04] MEDS: IPRATROPIUM 0.5 MG/2.5 ML INH IH SCH ×4 (06:40→23:26)
[2023-06-04] MEDS: BUDESONIDE 0.5 MG/2 ML INH IH SCH ×2 (06:40→18:28)
[2023-06-04] MEDS: PANTOPRAZOLE 40 MG TAB DR PO SCH (08:31)
[2023-06-04] MEDS: FLUCONAZOLE 400 MG/NS 200 ML 200 ML IV SCH (08:47)
[2023-06-04] MEDS: INSULIN GLARGINE 100 UNITS/ML 10 ML VIAL SQ SCH ×2 (08:52→20:29)
[2023-06-04] MEDS: THIAMINE HCL 100 MG TABLET PO SCH (08:53)
[2023-06-04] MEDS: ALPRAZOLAM 1 MG TAB PO SCH ×3 (08:53→20:49)
[2023-06-04] MEDS: POLYETHYLENE GLYCOL 3350 17 GM POWD.PACK PO SCH ×2 (08:53→20:28)
[2023-06-04] MEDS: ENOXAPARIN SODIUM 40 MG/0.4 ML SYRINGE SQ SCH (08:53)
[2023-06-04] MEDS: GABAPENTIN 300 MG CAPSULE PO SCH ×3 (08:54→20:27)
[2023-06-04] MEDS: DOCUSATE SODIUM 100 MG CAP PO SCH ×2 (08:54→20:27)
[2023-06-04] MEDS: PAROXETINE HCL 20 MG TABLET PO SCH (08:54)
[2023-06-04] MEDS: AMLODIPINE 5 MG TAB PO SCH (08:54)
[2023-06-04] MEDS: MAGNESIUM 2GM PREMIX 50ML 50 ML IV PRN (08:55)
[2023-06-04] MEDS: DIVALPROEX SODIUM 250 MG TABLET.DR PO SCH (09:39)
[2023-06-04] MEDS: FUROSEMIDE 40MG VIAL IV SCH (10:52)
[2023-06-04] MEDS: NYSTATIN-TRIAMCINOLONE CREAM 15 GM TP SCH ×2 (10:53→20:28)
[2023-06-04] MEDS ORDERED: ZIPRASIDONE MESYLATE 20 MG/VIAL IM PRN (13:30)
[2023-06-04] MEDS ORDERED: ALPRAZOLAM 1 MG TAB PO ONE (15:00)
[2023-06-04] MEDS: POTASSIUM CHLORIDE 20MEQ/100ML 100 ML IV PRN (17:49)
[2023-06-04] MEDS: QUETIAPINE FUMARATE 100 MG TAB PO SCH (20:26)
[2023-06-04] MEDS: ARTIFICIAL TEARS 3.5 GM OINTMENT OS SCH (20:29)
[2023-06-04] MEDS: ACETAMINOPHEN 325 MG TAB PO PRN (21:12)
[2023-06-05] VITALS (50 sets, daily range): BP systolic 96–168; BP diastolic 41–109; PULSE 60–129; RESP 6–107; O2SAT 87–99
[2023-06-05] MEDS: FUROSEMIDE 40MG VIAL IV SCH ×2 (00:14→12:18)
[2023-06-05] MEDS: CHLORHEXIDINE GLUCONATE 15 ML MOUTHWASH MM SCH ×3 (00:22→08:58)
[2023-06-05] MEDS: DEXMEDETOMIDINE 400MCG/NS100ML IV SCH ×2 (00:29→04:49)
[2023-06-05] MEDS: LACTULOSE 20 GM/30 ML UDCUP PO SCH ×2 (04:30→08:58)
[2023-06-05 05:11] LABS: BASOPHILS # (AUTO) 0.06 K/uL (0.00-0.20); BASOPHILS % (AUTO) 1.3 % (0.0-5.0); EOSINOPHILS # (AUTO) 0.17 K/uL (0.00-0.70); EOSINOPHILS % (AUTO) 3.8 % (0.0-8.0); HEMATOCRIT 36.9 % (42-54); IMMATURE GRANULOCYTE ABSOLUTE 0.03 K/uL (0-1); LYMPHOCYTES # (AUTO) 1.1 K/uL (1.0-4.8); LYMPHOCYTES % (AUTO) 23.9 % (21.0-51.0); MEAN CORPUSCULAR HEMOGLOBIN 27.7 pg (27.0-33.0); MEAN CORPUSCULAR HGB CONC 32.5 g/dL (32.0-36.0); MEAN CORPUSCULAR VOLUME 85.2 fL (79-99); MONOCYTES # (AUTO) 0.4 K/uL (0.1-1.0); MONOCYTES % (AUTO) 9.7 % (3.0-13.0); NEUTROPHILS # (AUTO) 2.7 K/uL (1.8-7.7); NEUTROPHILS % (AUTO) 60.6 % (40.0-77.0); PLATELET COUNT (AUTO) 334 K/uL (130-400); RED BLOOD CELL COUNT(AUTO) 4.33 MIL/uL (4.50-6.20); RED CELL DISTRIBUTION WIDTH 12.7 % (11.0-15.5); WHITE BLOOD COUNT (AUTO) 4.5 K/uL (4.8-10.8)
[2023-06-05 05:26] LABS: CREATININE 0.9 mg/dL (0.5-1.5); POTASSIUM 3.6 mmol/L (3.5-5.1)
[2023-06-05] MEDS: CHLORDIAZEPOXIDE HCL 25 MG CAP PO SCH ×3 (06:00→18:53)
[2023-06-05] MEDS: INSULIN HUMULIN R 100 UNIT/ML 3ML SQ SCH ×8 (06:00→19:50)
[2023-06-05] MEDS: ZOSYN 3.375GM +NS 50ML IV SCH ×3 (06:04→20:09)
[2023-06-05] MEDS: VANCOMYCIN 750MG VIAL IVPB SCH ×3 (06:04→21:54)
[2023-06-05] MEDS: IPRATROPIUM 0.5 MG/2.5 ML INH IH SCH ×4 (06:26→23:42)
[2023-06-05] MEDS: BUDESONIDE 0.5 MG/2 ML INH IH SCH ×2 (06:26→18:46)
[2023-06-05] MEDS: ALPRAZOLAM 1 MG TAB PO SCH ×4 (07:25→20:09)
[2023-06-05] MEDS: POTASSIUM CHLORIDE 20MEQ/100ML 100 ML IV PRN (07:34)
[2023-06-05] MEDS: PANTOPRAZOLE 40 MG TAB DR PO SCH (08:53)
[2023-06-05] MEDS: GABAPENTIN 300 MG CAPSULE PO SCH (08:53)
[2023-06-05] MEDS: AMLODIPINE 5 MG TAB PO SCH (08:54)
[2023-06-05] MEDS: PAROXETINE HCL 20 MG TABLET PO SCH (08:54)
[2023-06-05] MEDS: DOCUSATE SODIUM 100 MG CAP PO SCH ×2 (08:55→20:56)
[2023-06-05] MEDS: FLUCONAZOLE 400 MG/NS 200 ML 200 ML IV SCH (08:55)
[2023-06-05] MEDS: INSULIN GLARGINE 100 UNITS/ML 10 ML VIAL SQ SCH ×3 (08:57→21:00)
[2023-06-05] MEDS: ENOXAPARIN SODIUM 40 MG/0.4 ML SYRINGE SQ SCH (08:57)
[2023-06-05] MEDS: NYSTATIN-TRIAMCINOLONE CREAM 15 GM TP SCH ×2 (08:58→21:01)
[2023-06-05] MEDS: POLYETHYLENE GLYCOL 3350 17 GM POWD.PACK PO SCH ×2 (09:00→20:56)
[2023-06-05] MEDS: THIAMINE HCL 100 MG TABLET PO SCH (09:02)
[2023-06-05] MEDS: DIVALPROEX SODIUM 250 MG TABLET.DR PO SCH (09:02)
[2023-06-05] MEDS ORDERED: GABAPENTIN 300 MG CAPSULE PO SCH (14:00)
[2023-06-05] MEDS ORDERED: LACTULOSE 20 GM/30 ML UDCUP PO PRN (14:00)
[2023-06-05] MEDS ORDERED: GABAPENTIN 100 MG CAPSULE ONE (14:17)
[2023-06-05] MEDS: CHLORDIAZEPOXIDE HCL 25 MG CAP PO PRN (14:22)
[2023-06-05] MEDS ORDERED: TAMSULOSIN HCL 0.4 MG CAP.ER.24H PO ONE (15:30)
[2023-06-05] MEDS ORDERED: LIDOCAINE/PRILOCAINE CREAM 5GM TUBE TP PRN (15:30)
[2023-06-05] MEDS ORDERED: KETOROLAC 15MG/ML VIAL (15MG/ML) IV PRN (15:30)
[2023-06-05] MEDS ORDERED: KETOROLAC 15MG/ML VIAL (15MG/ML) ONE (15:35)
[2023-06-05] MEDS ORDERED: DEXMEDETOMIDINE 400MCG/NS100ML IV ONE (17:06)
[2023-06-05] MEDS: LORAZEPAM 2 MG/ML 1 ML VIAL IVP PRN ×3 (17:19→22:39)
[2023-06-05] MEDS: METOPROLOL TARTRATE 25 MG TAB PO SCH (20:09)
[2023-06-05] MEDS: QUETIAPINE FUMARATE 100 MG TAB PO SCH (20:09)
[2023-06-05] MEDS: GABAPENTIN 100 MG CAPSULE PO SCH (20:10)
[2023-06-05] MEDS: ZOLPIDEM TARTRATE 5 MG TAB PO PRN (20:55)
[2023-06-06] VITALS (32 sets, daily range): BP systolic 109–166; BP diastolic 60–93; PULSE 65–102; RESP 11–25; O2SAT 92–99
[2023-06-06] MEDS: FUROSEMIDE 40MG VIAL IV SCH ×3 (00:10→23:23)
[2023-06-06] MEDS: INSULIN HUMULIN R 100 UNIT/ML 3ML SQ SCH ×8 (00:12→20:30)
[2023-06-06 00:47] LABS: MAGNESIUM 1.8 mg/dL (1.80-2.40); POTASSIUM 3.8 mmol/L (3.5-5.1)
[2023-06-06] MEDS: POTASSIUM CHLORIDE 20MEQ/100ML 100 ML IV PRN (01:08)
[2023-06-06] MEDS: LORAZEPAM 2 MG/ML 1 ML VIAL IVP PRN ×4 (01:22→22:05)
[2023-06-06] MEDS: MAGNESIUM 2GM PREMIX 50ML 50 ML IV PRN (02:31)
[2023-06-06 04:27] LABS: BASOPHILS # (AUTO) 0.06 K/uL (0.00-0.20); BASOPHILS % (AUTO) 1.6 % (0.0-5.0); EOSINOPHILS # (AUTO) 0.12 K/uL (0.00-0.70); EOSINOPHILS % (AUTO) 3.1 % (0.0-8.0); HEMATOCRIT 37.3 % (42-54); IMMATURE GRANULOCYTE ABSOLUTE 0.03 K/uL (0-1); LYMPHOCYTES # (AUTO) 0.9 K/uL (1.0-4.8); LYMPHOCYTES % (AUTO) 23.4 % (21.0-51.0); MEAN CORPUSCULAR HEMOGLOBIN 27.6 pg (27.0-33.0); MEAN CORPUSCULAR HGB CONC 32.7 g/dL (32.0-36.0); MEAN CORPUSCULAR VOLUME 84.4 fL (79-99); MONOCYTES # (AUTO) 0.4 K/uL (0.1-1.0); MONOCYTES % (AUTO) 9.6 % (3.0-13.0); NEUTROPHILS # (AUTO) 2.4 K/uL (1.8-7.7); NEUTROPHILS % (AUTO) 61.5 % (40.0-77.0); PLATELET COUNT (AUTO) 324 K/uL (130-400); RED BLOOD CELL COUNT(AUTO) 4.42 MIL/uL (4.50-6.20); RED CELL DISTRIBUTION WIDTH 12.8 % (11.0-15.5); WHITE BLOOD COUNT (AUTO) 3.8 K/uL (4.8-10.8)
[2023-06-06 04:41] LABS: POTASSIUM 3.7 mmol/L (3.5-5.1)
[2023-06-06] MEDS: ZOSYN 3.375GM +NS 50ML IV SCH ×3 (05:04→20:25)
[2023-06-06] MEDS: VANCOMYCIN 750MG VIAL IVPB SCH (05:04)
[2023-06-06] MEDS: BUDESONIDE 0.5 MG/2 ML INH IH SCH ×2 (06:35→19:44)
[2023-06-06] MEDS: IPRATROPIUM 0.5 MG/2.5 ML INH IH SCH ×4 (06:35→23:53)
[2023-06-06] MEDS: CHLORDIAZEPOXIDE HCL 25 MG CAP PO SCH ×2 (07:07→19:04)
[2023-06-06] MEDS: ALPRAZOLAM 1 MG TAB PO SCH ×3 (07:07→20:25)
[2023-06-06] MEDS: POLYETHYLENE GLYCOL 3350 17 GM POWD.PACK PO SCH ×2 (07:44→20:25)
[2023-06-06] MEDS: DOCUSATE SODIUM 100 MG CAP PO SCH ×2 (07:44→20:26)
[2023-06-06] MEDS: ENOXAPARIN SODIUM 40 MG/0.4 ML SYRINGE SQ SCH ×2 (07:45→17:33)
[2023-06-06] MEDS: PAROXETINE HCL 20 MG TABLET PO SCH (09:46)
[2023-06-06] MEDS: PANTOPRAZOLE 40 MG TAB DR PO SCH (09:47)
[2023-06-06] MEDS: TAMSULOSIN HCL 0.4 MG CAP.ER.24H PO SCH (09:48)
[2023-06-06] MEDS: DIVALPROEX SODIUM 250 MG TABLET.DR PO SCH (09:48)
[2023-06-06] MEDS: THIAMINE HCL 100 MG TABLET PO SCH (09:48)
[2023-06-06] MEDS: AMLODIPINE 5 MG TAB PO SCH (09:48)
[2023-06-06] MEDS: GABAPENTIN 100 MG CAPSULE PO SCH ×3 (09:49→20:26)
[2023-06-06] MEDS: METOPROLOL TARTRATE 25 MG TAB PO SCH (09:49)
[2023-06-06] MEDS: INSULIN GLARGINE 100 UNITS/ML 10 ML VIAL SQ SCH ×2 (10:08→20:31)
[2023-06-06] MEDS ORDERED: LORAZEPAM 2 MG/ML 1 ML VIAL IVP PRN (11:30)
[2023-06-06] MEDS ORDERED: PHARMACY COMMUNICATION MISC PRN (11:30)
[2023-06-06] MEDS ORDERED: CHLORDIAZEPOXIDE HCL 25 MG CAP PO PRN ×2 (11:30)
[2023-06-06] MEDS: FLUCONAZOLE 400 MG/NS 200 ML 200 ML IV SCH (12:46)
[2023-06-06] MEDS: NYSTATIN-TRIAMCINOLONE CREAM 15 GM TP SCH ×2 (13:15→20:27)
[2023-06-06] MEDS ORDERED: ZOSYN 3.375GM +NS 50ML IV SCH (13:30)
[2023-06-06] MEDS: CARVEDILOL 6.25 MG TABLET PO SCH (20:26)
[2023-06-06] MEDS: QUETIAPINE FUMARATE 100 MG TAB PO SCH (20:26)
[2023-06-07] VITALS (9 sets, daily range): BP systolic 123–143; BP diastolic 64–91; PULSE 73–102; RESP 18–20; O2SAT 93–97
[2023-06-07] MEDS: INSULIN HUMULIN R 100 UNIT/ML 3ML SQ SCH ×8 (01:12→21:00)
[2023-06-07] MEDS: LORAZEPAM 2 MG/ML 1 ML VIAL IVP PRN (03:50)
[2023-06-07 04:16] LABS: BASOPHILS # (AUTO) 0.05 K/uL (0.00-0.20); BASOPHILS % (AUTO) 1.2 % (0.0-5.0); EOSINOPHILS # (AUTO) 0.11 K/uL (0.00-0.70); EOSINOPHILS % (AUTO) 2.6 % (0.0-8.0); HEMATOCRIT 37.7 % (42-54); IMMATURE GRANULOCYTE ABSOLUTE 0.02 K/uL (0-1); LYMPHOCYTES # (AUTO) 0.9 K/uL (1.0-4.8); LYMPHOCYTES % (AUTO) 21.1 % (21.0-51.0); MEAN CORPUSCULAR HEMOGLOBIN 27.5 pg (27.0-33.0); MEAN CORPUSCULAR HGB CONC 32.6 g/dL (32.0-36.0); MEAN CORPUSCULAR VOLUME 84.2 fL (79-99); MONOCYTES # (AUTO) 0.3 K/uL (0.1-1.0); NEUTROPHILS # (AUTO) 2.9 K/uL (1.8-7.7); NEUTROPHILS % (AUTO) 67.6 % (40.0-77.0); PLATELET COUNT (AUTO) 368 K/uL (130-400); RED BLOOD CELL COUNT(AUTO) 4.48 MIL/uL (4.50-6.20); RED CELL DISTRIBUTION WIDTH 12.9 % (11.0-15.5); WHITE BLOOD COUNT (AUTO) 4.3 K/uL (4.8-10.8)
[2023-06-07 04:38] LABS: POTASSIUM 3.5 mmol/L (3.5-5.1)
[2023-06-07] MEDS: CHLORDIAZEPOXIDE HCL 25 MG CAP PO SCH ×3 (04:40→18:36)
[2023-06-07] MEDS: ZOSYN 3.375GM +NS 50ML IV SCH ×3 (04:51→20:28)
[2023-06-07] MEDS: IPRATROPIUM 0.5 MG/2.5 ML INH IH SCH (07:17)
[2023-06-07] MEDS: BUDESONIDE 0.5 MG/2 ML INH IH SCH ×2 (07:17→19:34)
[2023-06-07] MEDS: ENOXAPARIN SODIUM 40 MG/0.4 ML SYRINGE SQ SCH (08:39)
[2023-06-07] MEDS: THIAMINE HCL 100 MG TABLET PO SCH (08:44)
[2023-06-07] MEDS: ALPRAZOLAM 1 MG TAB PO SCH ×3 (08:44→20:29)
[2023-06-07] MEDS: PAROXETINE HCL 20 MG TABLET PO SCH (08:44)
[2023-06-07] MEDS: TAMSULOSIN HCL 0.4 MG CAP.ER.24H PO SCH (08:44)
[2023-06-07] MEDS: GABAPENTIN 100 MG CAPSULE PO SCH ×3 (08:44→20:28)
[2023-06-07] MEDS: AMLODIPINE 5 MG TAB PO SCH (08:46)
[2023-06-07] MEDS: DIVALPROEX SODIUM 250 MG TABLET.DR PO SCH (08:46)
[2023-06-07] MEDS: PANTOPRAZOLE 40 MG TAB DR PO SCH (08:46)
[2023-06-07] MEDS: CARVEDILOL 6.25 MG TABLET PO SCH ×2 (08:46→20:28)
[2023-06-07] MEDS: FLUCONAZOLE 400 MG/NS 200 ML 200 ML IV SCH (08:47)
[2023-06-07] MEDS: INSULIN GLARGINE 100 UNITS/ML 10 ML VIAL SQ SCH ×2 (08:51→20:30)
[2023-06-07] MEDS: DOCUSATE SODIUM 100 MG CAP PO SCH ×2 (08:52→20:30)
[2023-06-07] MEDS: POLYETHYLENE GLYCOL 3350 17 GM POWD.PACK PO SCH ×2 (08:52→20:29)
[2023-06-07] MEDS: NYSTATIN-TRIAMCINOLONE CREAM 15 GM TP SCH (09:00)
[2023-06-07] MEDS ORDERED: IPRATROPIUM 0.5 MG/2.5 ML INH IH PRN (11:00)
[2023-06-07] MEDS: FUROSEMIDE 40MG VIAL IV SCH (11:07)
[2023-06-07] MEDS: QUETIAPINE FUMARATE 100 MG TAB PO SCH (20:29)
[2023-06-08] VITALS (11 sets, daily range): BP systolic 133–146; BP diastolic 75–89; PULSE 65–96; RESP 17–19; O2SAT 93–95
[2023-06-08] MEDS: FUROSEMIDE 40MG VIAL IV SCH ×3 (00:02→23:02)
[2023-06-08] MEDS: NYSTATIN-TRIAMCINOLONE CREAM 15 GM TP SCH ×3 (00:03→22:28)
[2023-06-08] MEDS: ZOSYN 3.375GM +NS 50ML IV SCH ×3 (04:14→21:54)
[2023-06-08] MEDS: CHLORDIAZEPOXIDE HCL 25 MG CAP PO SCH ×2 (06:00→18:27)
[2023-06-08 06:02] LABS: BASOPHILS # (AUTO) 0.06 K/uL (0.00-0.20); BASOPHILS % (AUTO) 1.4 % (0.0-5.0); EOSINOPHILS # (AUTO) 0.29 K/uL (0.00-0.70); EOSINOPHILS % (AUTO) 6.6 % (0.0-8.0); HEMATOCRIT 36.6 % (42-54); IMMATURE GRANULOCYTE ABSOLUTE 0.02 K/uL (0-1); LYMPHOCYTES % (AUTO) 23.5 % (21.0-51.0); MEAN CORPUSCULAR HEMOGLOBIN 27.6 pg (27.0-33.0); MEAN CORPUSCULAR HGB CONC 33.1 g/dL (32.0-36.0); MEAN CORPUSCULAR VOLUME 83.4 fL (79-99); MONOCYTES # (AUTO) 0.3 K/uL (0.1-1.0); MONOCYTES % (AUTO) 6.8 % (3.0-13.0); NEUTROPHILS # (AUTO) 2.7 K/uL (1.8-7.7); NEUTROPHILS % (AUTO) 61.2 % (40.0-77.0); PLATELET COUNT (AUTO) 330 K/uL (130-400); RED BLOOD CELL COUNT(AUTO) 4.39 MIL/uL (4.50-6.20); RED CELL DISTRIBUTION WIDTH 12.8 % (11.0-15.5); WHITE BLOOD COUNT (AUTO) 4.4 K/uL (4.8-10.8)
[2023-06-08 06:10] LABS: POTASSIUM 3.5 mmol/L (3.5-5.1)
[2023-06-08] MEDS: POTASSIUM CHLORIDE 20MEQ/100ML 100 ML IV PRN (06:39)
[2023-06-08] MEDS: INSULIN HUMULIN R 100 UNIT/ML 3ML SQ SCH ×8 (06:41→21:00)
[2023-06-08] MEDS: BUDESONIDE 0.5 MG/2 ML INH IH SCH (06:55)
[2023-06-08] MEDS: THIAMINE HCL 100 MG TABLET PO SCH (08:33)
[2023-06-08] MEDS: PAROXETINE HCL 20 MG TABLET PO SCH (08:33)
[2023-06-08] MEDS: ENOXAPARIN SODIUM 40 MG/0.4 ML SYRINGE SQ SCH (08:33)
[2023-06-08] MEDS: GABAPENTIN 100 MG CAPSULE PO SCH ×3 (08:33→21:56)
[2023-06-08] MEDS: ALPRAZOLAM 1 MG TAB PO SCH ×3 (08:33→21:55)
[2023-06-08] MEDS: DIVALPROEX SODIUM 250 MG TABLET.DR PO SCH (08:33)
[2023-06-08] MEDS: PANTOPRAZOLE 40 MG TAB DR PO SCH (08:33)
[2023-06-08] MEDS: FLUCONAZOLE 400 MG/NS 200 ML 200 ML IV SCH (08:34)
[2023-06-08] MEDS: CARVEDILOL 6.25 MG TABLET PO SCH ×2 (08:34→21:56)
[2023-06-08] MEDS: TAMSULOSIN HCL 0.4 MG CAP.ER.24H PO SCH (08:34)
[2023-06-08] MEDS: DOCUSATE SODIUM 100 MG CAP PO SCH ×2 (08:47→21:00)
[2023-06-08] MEDS: POLYETHYLENE GLYCOL 3350 17 GM POWD.PACK PO SCH ×2 (08:47→21:00)
[2023-06-08] MEDS: INSULIN GLARGINE 100 UNITS/ML 10 ML VIAL SQ SCH ×2 (09:02→22:20)
[2023-06-08] MEDS: AMLODIPINE 5 MG TAB PO SCH (09:05)
[2023-06-08 17:26] LABS: AMPHET/METH SCREEN,URINE NEGATIVE (NEGATIVE); BARBITURATE SCREEN, URINE NEGATIVE (NEGATIVE); BENZODIAZEPINES SCREEN,URINE POSITIVE (NEGATIVE); CANNABINOID SCREEN,URINE NEGATIVE (NEGATIVE); COCAINE SCREEN,URINE NEGATIVE (NEGATIVE); OPIATE SCREEN,URINE NEGATIVE (NEGATIVE); PHENCYCLIDINE SCREEN,URINE NEGATIVE (NEGATIVE)
[2023-06-08] MEDS: QUETIAPINE FUMARATE 100 MG TAB PO SCH (21:55)
[2023-06-09] VITALS (9 sets, daily range): BP systolic 105–142; BP diastolic 62–95; PULSE 71–106; RESP 16–19; O2SAT 94–95
[2023-06-09] MEDS: INSULIN HUMULIN R 100 UNIT/ML 3ML SQ SCH ×6 (00:40→21:00)
[2023-06-09] MEDS: ZOSYN 3.375GM +NS 50ML IV SCH ×3 (05:13→21:11)
[2023-06-09 05:21] LABS: BASOPHILS # (AUTO) 0.05 K/uL (0.00-0.20); BASOPHILS % (AUTO) 1.3 % (0.0-5.0); EOSINOPHILS # (AUTO) 0.25 K/uL (0.00-0.70); EOSINOPHILS % (AUTO) 6.6 % (0.0-8.0); HEMATOCRIT 35.6 % (42-54); IMMATURE GRANULOCYTE ABSOLUTE 0.02 K/uL (0-1); LYMPHOCYTES # (AUTO) 0.9 K/uL (1.0-4.8); LYMPHOCYTES % (AUTO) 23.7 % (21.0-51.0); MEAN CORPUSCULAR HEMOGLOBIN 27.8 pg (27.0-33.0); MEAN CORPUSCULAR HGB CONC 32.9 g/dL (32.0-36.0); MEAN CORPUSCULAR VOLUME 84.6 fL (79-99); MONOCYTES # (AUTO) 0.3 K/uL (0.1-1.0); MONOCYTES % (AUTO) 7.4 % (3.0-13.0); NEUTROPHILS # (AUTO) 2.3 K/uL (1.8-7.7); NEUTROPHILS % (AUTO) 60.5 % (40.0-77.0); PLATELET COUNT (AUTO) 347 K/uL (130-400); RED BLOOD CELL COUNT(AUTO) 4.21 MIL/uL (4.50-6.20); RED CELL DISTRIBUTION WIDTH 12.8 % (11.0-15.5); WHITE BLOOD COUNT (AUTO) 3.8 K/uL (4.8-10.8)
[2023-06-09 05:42] LABS: ALBUMIN 2.7 g/dL (3.5-5.0); BILIRUBIN,TOTAL 0.3 mg/dL (0.2-1.0); POTASSIUM 3.3 mmol/L (3.5-5.1); TOTAL PROTEIN, SERUM 7.8 g/dL (6.0-8.3)
[2023-06-09] MEDS: KCL 20 MEQ ERTAB PO PRN (06:22)
[2023-06-09] MEDS: BUDESONIDE 0.5 MG/2 ML INH IH SCH ×2 (06:48→18:00)
[2023-06-09] MEDS: DOCUSATE SODIUM 100 MG CAP PO SCH ×2 (09:00→21:00)
[2023-06-09] MEDS: POLYETHYLENE GLYCOL 3350 17 GM POWD.PACK PO SCH ×2 (09:00→21:00)
[2023-06-09] MEDS: THIAMINE HCL 100 MG TABLET PO SCH (09:49)
[2023-06-09] MEDS: FLUCONAZOLE 400 MG/NS 200 ML 200 ML IV SCH (09:49)
[2023-06-09] MEDS: ALPRAZOLAM 1 MG TAB PO SCH ×3 (09:49→21:10)
[2023-06-09] MEDS: PAROXETINE HCL 20 MG TABLET PO SCH (09:50)
[2023-06-09] MEDS: DIVALPROEX SODIUM 250 MG TABLET.DR PO SCH (09:51)
[2023-06-09] MEDS: CARVEDILOL 6.25 MG TABLET PO SCH ×2 (09:53→21:11)
[2023-06-09] MEDS: PANTOPRAZOLE 40 MG TAB DR PO SCH (09:53)
[2023-06-09] MEDS: GABAPENTIN 100 MG CAPSULE PO SCH ×3 (09:53→21:10)
[2023-06-09] MEDS: AMLODIPINE 5 MG TAB PO SCH (09:54)
[2023-06-09] MEDS: ENOXAPARIN SODIUM 40 MG/0.4 ML SYRINGE SQ SCH (09:57)
[2023-06-09] MEDS: INSULIN GLARGINE 100 UNITS/ML 10 ML VIAL SQ SCH ×2 (10:04→21:41)
[2023-06-09] MEDS: NYSTATIN-TRIAMCINOLONE CREAM 15 GM TP SCH ×2 (11:20→21:43)
[2023-06-09] MEDS: TAMSULOSIN HCL 0.4 MG CAP.ER.24H PO SCH (11:20)
[2023-06-09] MEDS: FUROSEMIDE 40MG VIAL IV SCH ×2 (12:25→21:12)
[2023-06-09] MEDS ORDERED: PHARMACY COMMUNICATION MISC SCH (15:30)
[2023-06-09] MEDS: QUETIAPINE FUMARATE 100 MG TAB PO SCH (21:10)
[2023-06-09] MEDS: LORAZEPAM 2 MG/ML 1 ML VIAL IVP PRN (21:46)
[2023-06-10] MEDS: INSULIN HUMULIN R 100 UNIT/ML 3ML SQ SCH ×5 (00:34→12:00)
[2023-06-10] MEDS: ZOSYN 3.375GM +NS 50ML IV SCH ×2 (05:11→11:58)
[2023-06-10 06:15] VITALS: BP 114/70; PULSE 78; RESP 18
[2023-06-10] MEDS: BUDESONIDE 0.5 MG/2 ML INH IH SCH (06:33)
[2023-06-10 06:35] VITALS: PULSE 69; RESP 18
[2023-06-10 06:36] VITALS: PULSE 69; RESP 18; O2SAT 94
[2023-06-10 08:00] VITALS: BP 162/92; PULSE 84; RESP 18; O2SAT 95
[2023-06-10] MEDS ORDERED: CARIPRAZINE PO SCH (09:00)
[2023-06-10] MEDS: POLYETHYLENE GLYCOL 3350 17 GM POWD.PACK PO SCH (09:00)
[2023-06-10] MEDS: FUROSEMIDE 40MG VIAL IV SCH ×2 (09:08→13:43)
[2023-06-10] MEDS: PAROXETINE HCL 20 MG TABLET PO SCH (09:08)
[2023-06-10] MEDS: ALPRAZOLAM 1 MG TAB PO SCH ×2 (09:08→13:42)
[2023-06-10] MEDS: PANTOPRAZOLE 40 MG TAB DR PO SCH (09:08)
[2023-06-10] MEDS: TAMSULOSIN HCL 0.4 MG CAP.ER.24H PO SCH (09:08)
[2023-06-10] MEDS: DIVALPROEX SODIUM 250 MG TABLET.DR PO SCH (09:09)
[2023-06-10] MEDS: AMLODIPINE 5 MG TAB PO SCH (09:09)
[2023-06-10] MEDS: THIAMINE HCL 100 MG TABLET PO SCH (09:09)
[2023-06-10] MEDS: DOCUSATE SODIUM 100 MG CAP PO SCH (09:09)
[2023-06-10] MEDS: GABAPENTIN 100 MG CAPSULE PO SCH ×2 (09:09→13:42)
[2023-06-10] MEDS: CARVEDILOL 6.25 MG TABLET PO SCH (09:10)
[2023-06-10] MEDS: ENOXAPARIN SODIUM 40 MG/0.4 ML SYRINGE SQ SCH (09:10)
[2023-06-10 09:11] VITALS: O2SAT 97
[2023-06-10] MEDS: NYSTATIN-TRIAMCINOLONE CREAM 15 GM TP SCH (09:11)
[2023-06-10] MEDS: INSULIN GLARGINE 100 UNITS/ML 10 ML VIAL SQ SCH (09:18)
[2023-06-10 12:00] VITALS: BP 114/62; PULSE 80; RESP 18
[2023-06-10] MEDS ORDERED: CARV6.2579 PO (14:10)
[2023-06-10] MEDS ORDERED: AMLO5TAB4 PO (14:10)
[2023-06-10] MEDS ORDERED: TAMS-1 PO (14:10)
[2023-06-10] MEDS ORDERED: PANT40TA PO (14:10)
[2023-06-10] MEDS ORDERED: FURO-151 PO (14:11)
== END 2023-06-10 15:00 | disposition home or self-care (01) | DRG 870 ==
LOC: EDH 15:32 → OBSVTOIN 15:33 → EDHIP 15:33 → 3BH 20:51 → 2BH 05-18 12:58 → 3DH 05-19 11:30 → UNDODISIN 05-22 12:55 → 2CH 05-23 12:34 → 2AH 06-06 14:57 → 2DH 06-06 22:05 → 3CH 06-08 18:40
PROVIDERS: ADMIT Internal Medicine Critical Care Medicine; ATTEND Internal Medicine Critical Care Medicine
PROC: 5A09357 Assistance with Respiratory Ventilation, Less than 24 Consecutive Hours, Continuous Positive Airway Pressure (ICD-10-PCS; 2023-05-17)
PROC: 5A09357 Assistance with Respiratory Ventilation, Less than 24 Consecutive Hours, Continuous Positive Airway Pressure (ICD-10-PCS; 2023-05-18)
PROC: 0BJ08ZZ Inspection of Tracheobronchial Tree, Via Natural or Artificial Opening Endoscopic (ICD-10-PCS; principal; 2023-05-23)
PROC: 0BH17EZ Insertion of Endotracheal Airway into Trachea, Via Natural or Artificial Opening (ICD-10-PCS; 2023-05-23)
PROC: 5A1955Z Respiratory Ventilation, Greater than 96 Consecutive Hours (ICD-10-PCS; 2023-05-23)
PROC: 5A09357 Assistance with Respiratory Ventilation, Less than 24 Consecutive Hours, Continuous Positive Airway Pressure (ICD-10-PCS; 2023-05-23)
PROC: 0W9B30Z Drainage of Left Pleural Cavity with Drainage Device, Percutaneous Approach (ICD-10-PCS; 2023-05-25)
PROC: 0W9B3ZZ Drainage of Left Pleural Cavity, Percutaneous Approach (ICD-10-PCS; 2023-05-29)
DX: A41.9 Sepsis, unspecified organism (principal); I50.33 Acute on chronic diastolic (congestive) heart failure; J96.01 Acute respiratory failure with hypoxia; R65.21 Severe sepsis with septic shock; J86.9 Pyothorax without fistula; J15.69 Pneumonia due to other Gram-negative bacteria; E87.1 Hypo-osmolality and hyponatremia; J44.0 Chronic obstructive pulmonary disease with (acute) lower respiratory infection; N17.9 Acute kidney failure, unspecified; I13.0 Hypertensive heart and chronic kidney disease with heart failure and stage 1 through stage 4 chronic kidney disease, or unspecified chronic kidney disease; J44.1 Chronic obstructive pulmonary disease with (acute) exacerbation; Z16.24 Resistance to multiple antibiotics; R45.851 Suicidal ideations; I16.9 Hypertensive crisis, unspecified; I31.39 Other pericardial effusion (noninflammatory); R33.9 Retention of urine, unspecified; Z20.822 Contact with and (suspected) exposure to COVID-19; R00.0 Tachycardia, unspecified; F41.9 Anxiety disorder, unspecified; E11.65 Type 2 diabetes mellitus with hyperglycemia; E83.42 Hypomagnesemia; N18.30 Chronic kidney disease, stage 3 unspecified; E11.22 Type 2 diabetes mellitus with diabetic chronic kidney disease; F17.210 Nicotine dependence, cigarettes, uncomplicated; G40.409 Other generalized epilepsy and epileptic syndromes, not intractable, without status epilepticus; Z53.29 Procedure and treatment not carried out because of patient's decision for other reasons; I34.81 Nonrheumatic mitral (valve) annulus calcification; F32.A Depression, unspecified; B96.20 Unspecified Escherichia coli [E. coli] as the cause of diseases classified elsewhere; Z82.49 Family history of ischemic heart disease and other diseases of the circulatory system; Z79.899 Other long term (current) drug therapy; Z79.84 Long term (current) use of oral hypoglycemic drugs; Z91.199 Patient's noncompliance with other medical treatment and regimen due to unspecified reason; Z79.4 Long term (current) use of insulin; Z83.3 Family history of diabetes mellitus
CPT/HCPCS: 31500; 32551; 36415; 36556; 36569; 36600; 71045; 71250; 71270; 74176; 76770; 80048; 80053; 80061; 80164; 80202; 80305; 81001; 82306; 82435; 82550; 82803; 82945; 82947; 82948; 83036; 83605; 83615; 83735; 83880; 83986; 84100; 84132; 84145; 84157; 84295; 84443; 84484; 85018; 85025; 85027; 85378; 85610; 85651; 86140; 86606; 87040; 87071; 87077; 87116; 87186; 87205; 87206; 87635; 87641; 87804; 89051; 92610; 93005; 93306; 93308; 93356; 93925; 94002; 94003; 94640; 94660; 94664; 94667; 94668; A4357; C1751; C9113; C9803; G0378; J0456; J0696; J1200; J1450; J1650; J1815; J1885; J1940; J1956; J2060; J2250; J2270; J2543; J2704; J2920; J2930; J2997; J3010; J3370; J3411; J3475; J3480; J3486; J3490; J7060; J7070; J7608; Q9967; A9900; J1644

== ENCOUNTER 2023-06-15 13:14 | Emergency (ER) | payer OTHER ==
[~2023-06-15] VITALS: Ht 175.3 cm; Wt 94.8 kg
[~2023-06-15 13:14] MED LIST changes: +AMLO5TAB4 PO; -AMOX-426 PO; +CARV6.2579 PO; -ETOMIDATE 20MG VIAL IVP ONE; +FURO-151 PO; +GABA-529 PO; +GLIP10TA9 PO; +HYDR25TA PO; -KETO10 PO; +LOSA100T59 PO; +METF-446 PO; +PANT40TA PO; +PARO40TA72 PO; -ROCURONIUM BROMIDE 10MG/1ML 5ML VL IV ONE; +TAMS-1 PO
[2023-06-15] MEDS ORDERED: LORAZEPAM 2 MG/ML 1 ML VIAL IVP ONE (14:30)
[2023-06-15] MEDS ORDERED: HYDRALAZINE 20MG/ML VIAL IV ONE (14:30)
[2023-06-15 14:50] LABS: BASOPHILS # (AUTO) 0.06 K/uL (0.00-0.20); BASOPHILS % (AUTO) 1.1 % (0.0-5.0); EOSINOPHILS # (AUTO) 0.26 K/uL (0.00-0.70); EOSINOPHILS % (AUTO) 4.9 % (0.0-8.0); HEMATOCRIT 37.4 % (42-54); IMMATURE GRANULOCYTE ABSOLUTE 0.09 K/uL (0-1); LYMPHOCYTES # (AUTO) 1.4 K/uL (1.0-4.8); LYMPHOCYTES % (AUTO) 27.1 % (21.0-51.0); MEAN CORPUSCULAR HEMOGLOBIN 28.5 pg (27.0-33.0); MEAN CORPUSCULAR HGB CONC 35.8 g/dL (32.0-36.0); MEAN CORPUSCULAR VOLUME 79.6 fL (79-99); MONOCYTES # (AUTO) 0.4 K/uL (0.1-1.0); MONOCYTES % (AUTO) 6.8 % (3.0-13.0); NEUTROPHILS # (AUTO) 3.1 K/uL (1.8-7.7); NEUTROPHILS % (AUTO) 58.4 % (40.0-77.0); NUCLEATED RED BLOOD CELLS 0.8 % (0.0-0.19); PLATELET COUNT (AUTO) 354 K/uL (130-400); RED CELL DISTRIBUTION WIDTH 13.3 % (11.0-15.5); WHITE BLOOD COUNT (AUTO) 5.3 K/uL (4.8-10.8)
[2023-06-15] MEDS ORDERED: ALPRAZOLAM 1 MG TAB ONE (14:54)
[2023-06-15] MEDS ORDERED: ALPRAZOLAM 1 MG TAB PO ONE (15:00)
[2023-06-15 15:02] LABS: POTASSIUM 4.2 mmol/L (3.5-5.1)
[2023-06-15 15:07] LABS: ALBUMIN 3.4 g/dL (3.5-5.0); BILIRUBIN,TOTAL 0.3 mg/dL (0.2-1.0); TOTAL PROTEIN, SERUM 7.6 g/dL (6.0-8.3)
[2023-06-15 15:16] LABS: B-TYPE NATRIURETIC PEPTIDE 20 pg/mL (0-100)
[2023-06-15 15:18] LABS: AMPHET/METH SCREEN,URINE NEGATIVE (NEGATIVE); BARBITURATE SCREEN, URINE NEGATIVE (NEGATIVE); BENZODIAZEPINES SCREEN,URINE POSITIVE (NEGATIVE); CANNABINOID SCREEN,URINE NEGATIVE (NEGATIVE); COCAINE SCREEN,URINE NEGATIVE (NEGATIVE); OPIATE SCREEN,URINE NEGATIVE (NEGATIVE); PHENCYCLIDINE SCREEN,URINE NEGATIVE (NEGATIVE)
[2023-06-15 16:00] VITALS: BP 134/58; PULSE 98; RESP 18; O2SAT 98
[2023-06-15] MEDS ORDERED: LORAZEPAM 2 MG/ML 1 ML VIAL IVP PRN (16:00)
== END 2023-06-15 16:38 | disposition home or self-care (01) ==
LOC: EDH 13:14
DX: J45.909 Unspecified asthma, uncomplicated (principal); I10 Essential (primary) hypertension; F41.9 Anxiety disorder, unspecified; Z79.84 Long term (current) use of oral hypoglycemic drugs; Z79.899 Other long term (current) drug therapy; Z98.890 Other specified postprocedural states
CPT/HCPCS: 99285; 96374; 71045; 96375; 83615; 84484 ×2; 80053; 83880; 80305; 85025; 36415; 96376; 93005; J0360; J2060 ×2

== ENCOUNTER 2023-08-10 12:42 | Observation (INO) | payer OTHER ==
[~2023-08-10] VITALS: Ht 175.3 cm; Wt 100.7 kg
[~2023-08-10 12:42] MED LIST changes: +CARV-159 PO; -CARV6.2579 PO
[2023-08-10] MEDS: LORAZEPAM 2 MG/ML 1 ML VIAL IVP ONE ×3 (13:11→21:33)
[2023-08-10] MEDS: ASPIRIN 325MG TAB PO ONE (13:12)
[2023-08-10] MEDS: NITROGLYCERIN 1GM OINT 1 INCH/1GM TD ONE (13:12)
[2023-08-10] MEDS: ENOXAPARIN SODIUM 80 MG/0.8 ML SQ ONE (13:12)
[2023-08-10 13:22] LABS: BASOPHILS # (AUTO) 0.05 K/uL (0.00-0.20); BASOPHILS % (AUTO) 0.7 % (0.0-5.0); EOSINOPHILS # (AUTO) 0.09 K/uL (0.00-0.70); EOSINOPHILS % (AUTO) 1.3 % (0.0-8.0); IMMATURE GRANULOCYTE ABSOLUTE 0.01 K/uL (0-1); LYMPHOCYTES # (AUTO) 1.8 K/uL (1.0-4.8); LYMPHOCYTES % (AUTO) 24.5 % (21.0-51.0); MEAN CORPUSCULAR HEMOGLOBIN 28.8 pg (27.0-33.0); MEAN CORPUSCULAR HGB CONC 35.9 g/dL (32.0-36.0); MEAN CORPUSCULAR VOLUME 80.3 fL (79-99); MONOCYTES # (AUTO) 0.6 K/uL (0.1-1.0); MONOCYTES % (AUTO) 7.8 % (3.0-13.0); NEUTROPHILS # (AUTO) 4.7 K/uL (1.8-7.7); NEUTROPHILS % (AUTO) 65.6 % (40.0-77.0); PLATELET COUNT (AUTO) 288 K/uL (130-400); RED BLOOD CELL COUNT(AUTO) 5.73 MIL/uL (4.50-6.20); RED CELL DISTRIBUTION WIDTH 12.6 % (11.0-15.5); WHITE BLOOD COUNT (AUTO) 7.2 K/uL (4.8-10.8)
[2023-08-10 13:51] LABS: B-TYPE NATRIURETIC PEPTIDE 9 pg/mL (0-100)
[2023-08-10 13:58] LABS: INR <= 0.93 (0.85-1.15); PROTHROMBIN TIME 10.9 SEC (9.6-11.6)
[2023-08-10 13:59] LABS: PARTIAL THROMBOPLASTIN TIME 39.3 SEC (26.3-35.5)
[2023-08-10 14:11] LABS: ALBUMIN 4.1 g/dL (3.5-5.0); BILIRUBIN,TOTAL 0.6 mg/dL (0.2-1.0); CREATININE 1.1 mg/dL (0.5-1.5); POTASSIUM 3.1 mmol/L (3.5-5.1); TOTAL PROTEIN, SERUM 7.9 g/dL (6.0-8.3)
[2023-08-10] MEDS: [UNRECOGNIZED DRUG - OTHER] IV SCH (14:50)
[2023-08-10] MEDS: KETAMINE IV SCH (14:50)
[2023-08-10 15:53] LABS: APPEARANCE,URINE CLEAR (CLEAR); BILIRUBIN,URINE NEGATIVE (NEGATIVE); COLOR,URINE LIGHT-YELLOW (YELLOW); GLUCOSE, URINE (UA) NEGATIVE (NEGATIVE); KETONES,URINE NEGATIVE (NEGATIVE); LEUKOCYTE ESTERASE ,URINE NEGATIVE Leu/uL (NEGATIVE); NITRATE,URINE NEGATIVE (NEGATIVE); OCCULT BLOOD,URINE NEGATIVE (NEGATIVE); PROTEIN,URINE NEGATIVE (NEGATIVE); UROBILINOGEN,URINE 0.2 mg/dL (0.2-1.0)
[2023-08-10 15:58] LABS: AMPHET/METH SCREEN,URINE NEGATIVE (NEGATIVE); BARBITURATE SCREEN, URINE NEGATIVE (NEGATIVE); BENZODIAZEPINES SCREEN,URINE POSITIVE (NEGATIVE); CANNABINOID SCREEN,URINE NEGATIVE (NEGATIVE); COCAINE SCREEN,URINE NEGATIVE (NEGATIVE); OPIATE SCREEN,URINE NEGATIVE (NEGATIVE); PHENCYCLIDINE SCREEN,URINE NEGATIVE (NEGATIVE)
[2023-08-10 16:00] LABS: ADD UA MICROSCOPIC NO
[2023-08-10] MEDS: DiphenhydrAMINE HCL 50 MG/ML VIAL IV ONE ×2 (16:01→21:34)
[2023-08-10] MEDS: HALOPERIDOL INJ 5 MG/ML VIAL IV SCH (17:06)
[2023-08-10 19:25] VITALS: O2SAT 99
[2023-08-10] MEDS: HALOPERIDOL INJ 5 MG/ML VIAL IM SCH (21:33)
[2023-08-11 06:41] VITALS: BP 90/53; PULSE 79; RESP 18
[2023-08-11 07:31] LABS: BASOPHILS # (AUTO) 0.05 K/uL (0.00-0.20); HEMATOCRIT 48.5 % (42-54); IMMATURE GRANULOCYTE ABSOLUTE 0.01 K/uL (0-1); LYMPHOCYTES # (AUTO) 1.2 K/uL (1.0-4.8); LYMPHOCYTES % (AUTO) 23.2 % (21.0-51.0); MEAN CORPUSCULAR HEMOGLOBIN 28.8 pg (27.0-33.0); MEAN CORPUSCULAR HGB CONC 34.4 g/dL (32.0-36.0); MEAN CORPUSCULAR VOLUME 83.6 fL (79-99); MONOCYTES # (AUTO) 0.4 K/uL (0.1-1.0); MONOCYTES % (AUTO) 8.4 % (3.0-13.0); NEUTROPHILS # (AUTO) 3.3 K/uL (1.8-7.7); NEUTROPHILS % (AUTO) 65.2 % (40.0-77.0); PLATELET COUNT (AUTO) 242 K/uL (130-400); RED CELL DISTRIBUTION WIDTH 12.9 % (11.0-15.5)
[2023-08-11 07:42] LABS: CREATININE 1.1 mg/dL (0.5-1.5); POTASSIUM 3.2 mmol/L (3.5-5.1)
== END 2023-08-11 07:45 | disposition left against medical advice (07) ==
LOC: EDH 12:42 → EDHIP 12:43
PROVIDERS: ADMIT Internal Medicine Critical Care Medicine; ATTEND Internal Medicine Critical Care Medicine
DX: R07.89 Other chest pain (principal); I20.0 Unstable angina; G40.909 Epilepsy, unspecified, not intractable, without status epilepticus; I10 Essential (primary) hypertension; E66.9 Obesity, unspecified; F41.8 Other specified anxiety disorders; E29.1 Testicular hypofunction; Z79.899 Other long term (current) drug therapy; Z98.890 Other specified postprocedural states; Z76.5 Malingerer [conscious simulation]; Z91.199 Patient's noncompliance with other medical treatment and regimen due to unspecified reason
CPT/HCPCS: 96376; 96372; 96365; 96366; 96375; 99285; 82550; 84484; 80053; 83880; 80305; 85025 ×2; 85610; 85730; 81003; 36415 ×2; 71045; 71250; 93005; 80048; G0378 ×15; J1200 ×2; J1630 ×2; J2060 ×3; J1650; J3490

== ENCOUNTER 2023-11-14 11:16 | Emergency (ER) | payer OTHER ==
[~2023-11-14] VITALS: Ht 172.7 cm; Wt 101.2 kg
[~2023-11-14 11:16] MED LIST changes: -CARV-159 PO; +CARV6.2579 PO
[2023-11-14 11:32] LABS: BASOPHILS # (AUTO) 0.07 K/uL (0.00-0.20); BASOPHILS % (AUTO) 1.2 % (0.0-5.0); EOSINOPHILS # (AUTO) 0.18 K/uL (0.00-0.70); HEMATOCRIT 46.1 % (42-54); IMMATURE GRANULOCYTE ABSOLUTE 0.04 K/uL (0-1); LYMPHOCYTES # (AUTO) 1.9 K/uL (1.0-4.8); MEAN CORPUSCULAR HEMOGLOBIN 27.9 pg (27.0-33.0); MEAN CORPUSCULAR HGB CONC 34.9 g/dL (32.0-36.0); MEAN CORPUSCULAR VOLUME 79.9 fL (79-99); MONOCYTES # (AUTO) 0.5 K/uL (0.1-1.0); MONOCYTES % (AUTO) 8.1 % (3.0-13.0); NEUTROPHILS # (AUTO) 3.3 K/uL (1.8-7.7); PLATELET COUNT (AUTO) 257 K/uL (130-400); RED BLOOD CELL COUNT(AUTO) 5.77 MIL/uL (4.50-6.20); RED CELL DISTRIBUTION WIDTH 14.8 % (11.0-15.5)
[2023-11-14 11:40] LABS: CREATININE 1.1 mg/dL (0.5-1.3); POTASSIUM 3.7 mmol/L (3.5-5.1)
[2023-11-14 11:45] LABS: ALBUMIN 4.1 g/dL (3.5-5.0); BILIRUBIN,TOTAL 0.4 mg/dL (0.2-1.0); TOTAL PROTEIN, SERUM 8.1 g/dL (6.0-8.3)
[2023-11-14 15:10] LABS: APPEARANCE,URINE CLEAR (CLEAR); BILIRUBIN,URINE NEGATIVE (NEGATIVE); COLOR,URINE YELLOW (YELLOW); GLUCOSE, URINE (UA) NEGATIVE (NEGATIVE); KETONES,URINE NEGATIVE (NEGATIVE); LEUKOCYTE ESTERASE ,URINE NEGATIVE Leu/uL (NEGATIVE); NITRATE,URINE NEGATIVE (NEGATIVE); OCCULT BLOOD,URINE NEGATIVE (NEGATIVE); PH,URINE 6.5 (5.0-8.0); PROTEIN,URINE 10 mg/dL (NEGATIVE); UROBILINOGEN,URINE 0.2 mg/dL (0.2-1.0)
[2023-11-14 15:11] LABS: ADD UA MICROSCOPIC YES; MUCUS,URINE RARE LPF (None Seen); RBC,URINE 0-1 /HPF (0-1); WBC,URINE 0-1 /HPF (0-1)
[2023-11-14] MEDS: LORAZEPAM 2 MG TABLET PO ONE (15:17)
[2023-11-14] MEDS: LORAZEPAM 1 MG TABLET ONE (15:17)
[2023-11-14 16:16] VITALS: BP 115/80; PULSE 75; RESP 14; O2SAT 99
== END 2023-11-14 16:18 | disposition home or self-care (01) ==
LOC: EDH 11:16
DX: R07.9 Chest pain, unspecified (principal); R06.02 Shortness of breath; F41.9 Anxiety disorder, unspecified; E11.9 Type 2 diabetes mellitus without complications; I10 Essential (primary) hypertension; Z98.890 Other specified postprocedural states; Z79.899 Other long term (current) drug therapy; Z79.84 Long term (current) use of oral hypoglycemic drugs
CPT/HCPCS: 36415; 71045; 80053; 81001; 83735; 84484; 85025; 93005

== ENCOUNTER 2024-02-04 13:56 | Emergency (ER) | payer SELFPAY ==
[~2024-02-04] VITALS: Ht 175.3 cm; Wt 99.8 kg
[~2024-02-04 13:56] MED LIST changes: +ANAS1TAB49 PO; +ASPI-1026 PO; +LOSA1TAB54 PO; +OLAN10TA73 PO; +QUET100T34 PO; +TEST200V21 IM
[2024-02-04 14:09] LABS: BASOPHILS # (AUTO) 0.04 K/uL (0.00-0.20); BASOPHILS % (AUTO) 0.4 % (0.0-5.0); EOSINOPHILS # (AUTO) 0.07 K/uL (0.00-0.70); EOSINOPHILS % (AUTO) 0.7 % (0.0-8.0); HEMATOCRIT 53.4 % (42-54); IMMATURE GRANULOCYTE ABSOLUTE 0.06 K/uL (0-1); LYMPHOCYTES # (AUTO) 1.6 K/uL (1.0-4.8); LYMPHOCYTES % (AUTO) 16.3 % (21.0-51.0); MEAN CORPUSCULAR HEMOGLOBIN 29.1 pg (27.0-33.0); MEAN CORPUSCULAR VOLUME 83.2 fL (79-99); MONOCYTES # (AUTO) 0.6 K/uL (0.1-1.0); MONOCYTES % (AUTO) 6.3 % (3.0-13.0); NEUTROPHILS # (AUTO) 7.3 K/uL (1.8-7.7); NEUTROPHILS % (AUTO) 75.7 % (40.0-77.0); PLATELET COUNT (AUTO) 252 K/uL (130-400); RED BLOOD CELL COUNT(AUTO) 6.42 MIL/uL (4.50-6.20); RED CELL DISTRIBUTION WIDTH 12.5 % (11.0-15.5); WHITE BLOOD COUNT (AUTO) 9.7 K/uL (4.8-10.8)
[2024-02-04 14:22] LABS: CREATININE 1.1 mg/dL (0.5-1.3)
[2024-02-04 14:26] LABS: ALBUMIN 3.7 g/dL (3.5-5.0); BILIRUBIN,TOTAL 0.4 mg/dL (0.2-1.0); MAGNESIUM 1.9 mg/dL (1.80-2.40); TOTAL PROTEIN, SERUM 7.9 g/dL (6.0-8.3)
[2024-02-04 14:55] LABS: INR 0.98 (0.85-1.15); PROTHROMBIN TIME 10.6 SEC (9.6-11.6)
[2024-02-04 14:57] LABS: PARTIAL THROMBOPLASTIN TIME 30.7 SEC (26.3-35.5)
[2024-02-04] MEDS: ASPIRIN 325MG TAB PO ONE (15:06)
[2024-02-04 15:52] VITALS: BP 133/86; PULSE 97; RESP 20; TEMP 97.6; O2SAT 96
== END 2024-02-04 16:24 | disposition home or self-care (01) ==
LOC: EDH 13:56
DX: R07.89 Other chest pain (principal); F41.1 Generalized anxiety disorder; E11.65 Type 2 diabetes mellitus with hyperglycemia; E78.00 Pure hypercholesterolemia, unspecified; I10 Essential (primary) hypertension; Z20.822 Contact with and (suspected) exposure to COVID-19; Z79.84 Long term (current) use of oral hypoglycemic drugs; Z79.899 Other long term (current) drug therapy; Z79.82 Long term (current) use of aspirin
CPT/HCPCS: 36415; 71045; 80053; 83690; 83735; 83880; 84484; 85025; 85610; 85730; 87426; 93005